=== PATIENT | female | born 1935 | race Caucasian/White ===

== ENCOUNTER 2017-02-16 12:09 | Inpatient (IN) | payer MEDICARE, OTHER ==
--- NOTE | 2017-02-16 12:30 | ED PDOC ---
Arrival/HPI - General Chief Complaint: Weakness/Neurological Deficit Time Seen by Provider: 02/16/17 12:15 Historian: Patient - History of Present Illness Narrative History of Present Illness (Text): 02/16/17 12:15 A 81 year old female, whose past medical history includes hypertension, rheumatoid arthritis, and small bowel obstruction, presents to the emergency department complaining of not being in her usual states of health. Patient reports about an hour prior to arrival she just did not feel like her self. She states she fell in the bathroom and hit the left side of her lead but she did not lose consciousness. Patient notes she feels weaker on the left side and has had some trouble walking. She did noted these symptoms as she tried getting up from the fall but is uncertain why she actually fell. Family also notes that she since the fall she seems confused and is talking less. Patient denies any chest pain, shortness of breath, or other complaints at this time. PMD: Dr. Martin Time/Duration: 1 hour Symptom Onset: Sudden Symptom Course: Unchanged Quality: Other Activities at Onset: Rest Context: Home Past Medical History - Provider Review Nursing Documentation Reviewed: Yes - Cardiac Hx Hypertension: Yes - Pulmonary Hx Respiratory Disorders: No - Neurological HX Cerebrovascular Accident: Yes - HEENT Hx HEENT Disorder: No - Renal Hx Renal Disorder: No - Endocrine/Metabolic Hx Endocrine Disorders: No - Hematological/Oncological Hx Blood Disorders: No - Integumentary Hx Dermatological Disorder: No - Musculoskeletal/Rheumatological Hx Musculoskeletal Disorders: No - Gastrointestinal Hx Gastrointestinal Disorders: No - Genitourinary/Gynecological Hx Genitourinary Disorders: No - Psychiatric Hx Psychophysiologic Disorder: No Hx Substance Use: No - Surgical History Hx Cholecystectomy: Yes Family/Social History - Physician Review Nursing Documentation Reviewed: Yes Family/Social History: Unknown Family HX Smoking Status: Former Smoker Hx Alcohol Use: No Hx Substance Use: No Allergies/Home Meds Allergies/Adverse Reactions: Allergies No Known Allergies Allergy (Verified 02/16/17 12:12) Home Medications: Home Meds Medication Instructions Recorded Confirmed Unobtainable 02/16/17 02/16/17 Review of Systems - Physician Review All systems were reviewed & negative as marked: Yes - Review of Systems Constitutional: Other (hit the left side of her head). absent: Fevers Eyes: absent: Vision Changes ENT: Normal Respiratory: absent: SOB Cardiovascular: absent: Chest Pain, Syncope Gastrointestinal: absent: Abdominal Pain Genitourinary Female: absent: Dysuria Musculoskeletal: absent: Neck Pain Neurological: Focal Weakness (left sided weakness), Gait Changes (trouble walking) Hemo/Lymphatic: Normal Psychiatric: Normal Physical Exam Vital Signs Reviewed: Yes Vital Signs Temp Pulse Resp BP Pulse Ox 02/16/17 13:04 73 147/107 H 02/16/17 12:33 69 17 177/104 H 100 02/16/17 12:22 97.9 F 78 18 179/107 H 100 02/16/17 12:12 98.2 F 79 16 175/106 H 97 Temperature: Afebrile Blood Pressure: Hypertensive Pulse: Regular Respiratory Rate: Normal Appearance: Positive for: Well-Appearing, Non-Toxic, Comfortable Pain Distress: None Mental Status: Positive for: Alert and Oriented X 3 - Systems Exam Head: Present: Atraumatic, Normocephalic Pupils: Present: PERRL Extroacular Muscles: Present: EOMI Conjunctiva: Present: Normal Mouth: Present: Moist Mucous Membranes Pharnyx: Present: Normal. No: ERYTHEMA, EXUDATE Neck: Present: Normal Range of Motion Respiratory/Chest: Present: Clear to Auscultation, Good Air Exchange. No: Respiratory Distress, Accessory Muscle Use Cardiovascular: Present: Regular Rate and Rhythm, Normal S1, S2. No: Murmurs Abdomen: Present: Normal Bowel Sounds. No: Tenderness, Distention, Peritoneal Signs Back: Present: Normal Inspection Upper Extremity: Present: Other (mild pronator drift to the left upper extremity ). No: Cyanosis, Edema Lower Extremity: Present: Other (patient is able to lift the left lower extremity against gravity but falls before 5 seconds). No: Edema Neurological: Present: GCS=15, CN II-XII Intact, Normal Sensory Function. No: Speech Normal (patient is able to answer all question without difficulty but speech is slower but there is no slurring), Motor Func Grossly Intact Skin: Present: Warm, Dry, Normal Color. No: Rashes Psychiatric: Present: Alert, Oriented x 3, Normal Insight, Normal Concentration Medical Decision Making ED Course and Treatment: 02/16/17 12:15 Impression: A 81 year old female with left sided weakness, slow speech and head trauma. Differential Diagnosis include but are not limited to: intracranial hemorrhage vs. ischemic CVA Plan: -- Head CT -- Chest X-ray -- Labs -- Urinalysis -- Reassess and disposition Progress Notes: Code stroke was called by the triage nurse. Case discussed with Dr. Sol June, who recommends to hold on the tPA at this time if CT shows no bleed, given the NIHSS scale is only 4. EKG: Ordered, reviewed, and independently interpreted the EKG. Rate : 78 BPM Rhythm : NSR Interpretation : PACs, right bundle branch block, QRS is 134, normal axis, no ST /T changes 02/16/17 12:[address]: Creator : Alcides Jung MD COMPARISON: None available. FINDINGS: HEMORRHAGE: Areas of acute parenchymal hemorrhage right frontal region with the largest acute hemorrhagic component measures 2 x 4.2 cm. High posterior parietal hemorrhage on the right is also seen measuring 8 mm. BRAIN: No mass effect or edema. No atrophy or chronic microvascular ischemic changes. VENTRICLES: Unremarkable. No hydrocephalus. CALVARIUM: No evidence of calvarial fracture. Extracranial scalp contusion posterior left parietal region. No evidence of extra-axial fluid collection or additional intra-axial hemorrhage. PARANASAL SINUSES: Unremarkable as visualized. No significant inflammatory changes. MASTOID AIR CELLS: Unremarkable as visualized. No inflammatory changes. OTHER FINDINGS: None. IMPRESSION: Two separate intra-axial foci of parenchymal hemorrhage is identified the largest in the right frontal region the 2nd in the high posterior right parietal region. Edema noted with less than 3 mm of midline shift. There is no mass effect upon the adjacent anterior horn of the right lateral ventricle. Contralateral posterior left parietal scalp contusion attests to recent fall and this may represent a Coup contrecoup type brain injury/hemorrhage. There is no evidence of calvarial fracture. 02/16/17 12:52 CT scan showing intracranial hemorrhage as noted. Case discussed with Dr. Barrera, neurosurgery, who said the treatment is non-operative. He recommended keeping the head of the bed elevated, which is being done in the emergency department. Nicardipine drip also started for BP control. Case discussed with Dr. Drake Martin for admission to his service. Case also discussed with Dr. Allen Ramos for admission to the ICU. Informed family of current plan to admit the patient to the ICU for monitoring and frequent neuro checks. Case rediscussed with Dr. Alejandro June who will consult on the patient. 02/16/17 14:37 CXR: nad - Critical Care Critical Care Minutes: 30 minutes - Lab Interpretations Lab Results: 02/16/17 12:54 02/16/17 12:54 Lab Results 02/16/17 12:54: Magnesium 2.4 H, Lactate Dehydrogenase 539, Total Creatine Kinase 110, Troponin I 0.02, Lipase 88 02/16/17 12:54: Sodium 142, Potassium 3.1 L, Chloride 102, Carbon Dioxide 28, Anion Gap 15, BUN 28 H, Creatinine 0.8, Est GFR ( Amer) > 60, Est GFR ( Non-Af Amer) > 60, Random Glucose 88, Calcium 9.6, Total Bilirubin 0.7, AST 41 H , ALT 29, Alkaline Phosphatase 70, Total Protein 8.1, Albumin 4.2, Globulin 3.9 , Albumin/Globulin Ratio 1.1, Triglycerides 160, Cholesterol 247 H, LDL Cholesterol Direct 127, HDL Cholesterol 72 H 02/16/17 12:54: PT 10.4, INR 0.96, APTT 26.8 02/16/17 12:54: WBC 6.4, RBC 4.04, Hgb 12.1, Hct 36.7, MCV 90.8, MCH 30.0, MCHC 33.0, RDW 13.7, Plt Count 254, MPV 9.2, Gran % 67.4, Lymph % (Auto) 23.2, [place] % (Auto) 7.3 H, Eos % (Auto) 1.6, Baso % (Auto) 0.5, Gran # 4.34, Lymph # 1.5, [place] # 0.5, Eos # 0.1, Baso # 0.03 I have reviewed the lab results: Yes - RAD Interpretation Radiology Orders: 02/16/17 12:30 HEAD W/O (CODE STROKE) [CT] Stat 02/16/17 12:33 CHEST ONE VIEW [RAD] Stat - Medication Orders Current Medication Orders: Atorvastatin Calcium (Lipitor) 40 mg PO DIN CHRISTOFER Nicardipine HCl (Cardene Iv Premix) 20 mg in 200 mls @ 50 mls/hr IV .Q4H PRN; Protocol; 5 MG/HR PRN Reason: TITRATE PER MD ORDER Discontinued Medications Nicardipine HCl (Cardene Iv Premix) 20 mg in 200 mls @ 50 mls/hr IV .Q4H PRN; Protocol; 5 MG/HR PRN Reason: TITRATE PER MD ORDER Last Admin: 02/16/17 13:04 Dose: 50 mls/hr Potassium Chloride (Potassium Chloride Oral Soln) 40 meq PO STAT STA Stop: 02/16/17 13:23 NIHSS Scale (Reserve) Time Performed: 12:25 - How Severe is the Stoke Baseline Level of Consciousness: 0=Alert LOC to Questions: 0=Both comments correct LOC to commands: 0=Obeys both correctly Best Gaze: 0=Normal Visual: 0=No visual loss Facial: 0=Normal Motor Arm - Left: 1=Drift noted before 10 sec Motor Arm - Right: 0=No drift Motor Leg - Left: 2=Falls before 5 sec Motor Leg - Right: 0=No drift Limb Ataxia: 0=Absent Sensory: 0=Normal Best Language: 1=Mild to moderate aphasia Dysarthia: 0=Normal articulation Extinction & Inattention (Neglect): 0=Normal, no object Score: 4 Risk Level: Minor Stroke Risk - Scribe Statement The provider has reviewed the documentation as recorded by the Heatheribe Candelario Velez Provider Scribe Attestation: All medical record entries made by the Scribe were at my direction and personally dictated by me. I have reviewed the chart and agree that the record accurately reflects my personal performance of the history, physical exam, medical decision making, and the department course for this patient. I have also personally directed, reviewed, and agree with the discharge instructions and disposition. Disposition/Present on Arrival - Present on Arrival Any Indicators Present on Arrival: No History of DVT/PE: No History of Uncontrolled Diabetes: No Urinary Catheter: No History of Decub. Ulcer: No History Surgical Site Infection Following: None - Disposition Have Diagnosis and Disposition been Completed?: Yes Diagnosis: Intracranial hemorrhage Disposition: HOME/ ROUTINE Disposition Time: 12:55 Patient Plan: Admission, ICU Condition: CRITICAL
[2017-02-16 12:39] VITALS: BMI 18.6
--- NOTE | 2017-02-16 12:53 | CT ---
PROCEDURE: CT HEAD WITHOUT CONTRAST. HISTORY: Recent trauma/fall. COMPARISON: None available. TECHNIQUE: Axial computed tomography images were obtained through the head/brain without intravenous contrast. Radiation dose: Total exam DLP = 774.23 mGy-cm. This CT exam was performed using one or more of the following dose reduction techniques: Automated exposure control, adjustment of the mA and/or kV according to patient size, and/or use of iterative reconstruction technique. FINDINGS: HEMORRHAGE: Areas of acute parenchymal hemorrhage right frontal region with the largest acute hemorrhagic component measures 2 x 4.2 cm. High posterior parietal hemorrhage on the right is also seen measuring 8 mm. BRAIN: No mass effect or edema. No atrophy or chronic microvascular ischemic changes. VENTRICLES: Unremarkable. No hydrocephalus. CALVARIUM: No evidence of calvarial fracture. Extracranial scalp contusion posterior left parietal region. No evidence of extra-axial fluid collection or additional intra-axial hemorrhage. PARANASAL SINUSES: Unremarkable as visualized. No significant inflammatory changes. MASTOID AIR CELLS: Unremarkable as visualized. No inflammatory changes. OTHER FINDINGS: None. IMPRESSION: Two separate intra-axial foci of parenchymal hemorrhage is identified the largest in the right frontal region the 2nd in the high posterior right parietal region. Edema noted with less than 3 mm of midline shift. There is no mass effect upon the adjacent anterior horn of the right lateral ventricle. Contralateral posterior left parietal scalp contusion attests to recent fall and this may represent a Coup contrecoup type brain injury/hemorrhage. . There is no evidence of calvarial fracture. Code stroke protocol: Study completed 12:29 Radiologist notified 12:39 Results conveyed verbally at 12:46 I discussed the findings directly with the attending emergency department physician Antoni Miranda M.D. Interpretation finalized and available for review 12:47 February 16, 2017.
[2017-02-16 12:55] LABS: ADD MANUAL DIFF? NO
[2017-02-16] MEDS ORDERED: Nicardipine 20 MG/200 ML 20 MG/200 ML BAG IV PRN (12:55)
[2017-02-16 13:05] LABS: BASO # 0.03 K/mm3 (0.0-2.0); BASO % 0.5 % (0.0-3.0); EOS # 0.1 (0.0-0.7); EOS % 1.6 % (1.5-5.0); GRAN # 4.34 (1.4-6.5); GRAN % 67.4 % (50.0-68.0); HEMATOCRIT 36.7 % (36.0-48.0); LYMPH # 1.5 (1.2-3.4); LYMPH % 23.2 % (22.0-35.0); MEAN CELL VOLUME 90.8 fL (80.0-105.0); MEAN PLATELET VOLUME 9.2 fl (7.0-11.0); MONO # 0.5 (0.1-0.6); MONO % 7.3 % (1.0-6.0); PLATELET COUNT 254 10^3/uL (120.0-450.0); RED CELL DISTRIBUTION WIDTH 13.7 % (11.5-14.5); WHITE BLOOD COUNT 6.4 10^3/ul (4.5-11.0)
[2017-02-16 13:11] LABS: INR 0.96 (0.93-1.08); PARTIAL THROMBOPLASTIN TIME 26.8 Seconds (23.7-30.8)
[2017-02-16 13:12] LABS: ALB/GLOB RATIO 1.1 (1.1-1.8); ALKALINE PHOSPHATASE 70 U/L (38-133); ALT/SGPT 29 U/L (7-56); AST/SGOT 41 U/L (15-39); BILIRUBIN,TOTAL 0.7 mg/dL (0.2-1.3); BLOOD UREA NITROGEN 28 mg/dL (7-21); CALCIUM 9.6 mg/dL (8.4-10.5); CARBON DIOXIDE 28 mmol/L (21-33); CHLORIDE 102 mmol/L (98-107); CHOLESTEROL 247 mg/dL (130-200); GFR AFRICAN-AMERICAN > 60; GLUCOSE,RANDOM 88 mg/dL (70-110); POTASSIUM 3.1 mmol/L (3.6-5.0); SODIUM 142 mmol/L (132-148); TOTAL PROTEIN 8.1 g/dL (5.8-8.3)
[2017-02-16] MEDS ORDERED: Potassium Chloride 40 mEq/30 ml LIQ UD PO STA (13:22)
[2017-02-16 13:40] LABS: MAGNESIUM 2.4 mg/dL (1.7-2.2)
[2017-02-16 13:52] LABS: TROPONIN I 0.02 ng/mL
--- NOTE | 2017-02-16 15:11 | RAD ---
PROCEDURE: CHEST RADIOGRAPH, 1 VIEW HISTORY: stroke COMPARISON: 10/21/2016. FINDINGS: LUNGS: Clear. PLEURA: No pneumothorax or pleural fluid seen. CARDIOVASCULAR: No radiographic findings to suggest acute or significant cardiovascular disease. OSSEOUS STRUCTURES: No significant abnormalities. VISUALIZED UPPER ABDOMEN: Normal. OTHER FINDINGS: None. IMPRESSION: No active disease. No acute/significant interval changes.
--- NOTE | 2017-02-16 15:58 | US ---
HISTORY: Leg pain and swelling. Evaluate for DVT PHYSICIAN(S): Eladio Mcguire MD. TECHNIQUE: Duplex sonography and color-flow Doppler with graded compression were used to evaluate the deep venous systems of both lower extremities. FINDINGS: The visualized deep venous systems of both lower extremities are sonographically normal and compressible. Normal wave forms and augmentation are seen. There is no sonographic evidence for deep venous thrombosis in the visualized segments of both lower extremities. IMPRESSION: No sonographic evidence for deep venous thrombosis in the visualized segments of both lower extremities.
[2017-02-16] MEDS: Nicardipine 20 MG/200 ML 20 MG/200 ML BAG IV PRN ×2 (16:53→20:17)
[2017-02-16] MEDS: Sodium Chloride 0.45% 1,000 ML IV SCH (16:59)
--- NOTE | 2017-02-16 17:40 | CT ---
PROCEDURE: CT HEAD WITHOUT CONTRAST. HISTORY: ams COMPARISON: February 16, 2017. Prior study completed 12:29. TECHNIQUE: Axial computed tomography images were obtained through the head/brain without intravenous contrast. Radiation dose: Total exam DLP = mGy-cm. This CT exam was performed using one or more of the following dose reduction techniques: Automated exposure control, adjustment of the mA and/or kV according to patient size, and/or use of iterative reconstruction technique. FINDINGS: HEMORRHAGE: Stable foci of intracranial hemorrhage the largest in the right frontal lobe. Small or acute parenchymal hemorrhage in the high right parietal region. BRAIN: Stable old degree of midline shift. Stable underlying cortical and cerebellar atrophy. VENTRICLES: Unremarkable. No hydrocephalus. CALVARIUM: Unremarkable. PARANASAL SINUSES: Unremarkable as visualized. No significant inflammatory changes. MASTOID AIR CELLS: Unremarkable as visualized. No inflammatory changes. OTHER FINDINGS: None. IMPRESSION: No significant interval change compared to the prior examination(s). Stable parenchymal hemorrhage right hemisphere.
--- NOTE | 2017-02-16 19:19 | CON ---
DATE: 02/16/2017 REQUESTING PHYSICIAN: Dr. Martin. CHIEF COMPLAINT: The patient presented with left-sided weakness and having a fall at home, noted to have an intercerebral hemorrhage on CT scan. HISTORY OF PRESENT ILLNESS: The patient is an 81-year-old female with a past medical history of hype rtension, rheumatoid arthritis and a CVA in the past. As per the patient and family, she felt weak t his morning and had a fall in the bathroom, hitting her head and after that developed left-sided weak ness and came to the Emergency Room. CT scan showed that she had intracerebral hemorrhage. At this time, the patient is awake, answers appropriately and has had some episodes of mental status changes here in the ICU, so we are repeating the CT scan of the head and the patient has been placed on a Car dene drip and neuro has recommended tight blood pressure control with systolic between 120 and 130. At this time, no complaints of pain. No nausea, vomiting, no abdominal pain, no diarrhea. No fever, chills or shortness of breath. PAST MEDICAL HISTORY: Is significant for history of CVA many years ago as well as the above noted. MEDICATIONS: Can be evaluated as per the nurses' intake form. SOCIAL HISTORY: The patient is a former smoker. No ETOH abuse. No drug abuse. REVIEW OF SYSTEMS: CONSTITUTIONAL: The patient hit the left side of her head. There is a hematoma. No fever or chills . HEENT: All negative. RESPIRATORY: All negative. CARDIOVASCULAR: All negative. GASTROINTESTINAL: All negative. GENITOURINARY: All negative. MUSCULOSKELETAL: All negative. NEUROPSYCHIATRIC: There was some focal weakness. HEMATOLOGIC: All negative. IMMUNOLOGIC: All negative. ENDOCRINE: All negative. INTEGRITY: All negative. PHYSICAL EXAMINATION: VITAL SIGNS: Note that her temperature is 98.2, her pulse is 80, respirations are 16, and BP is 135/ 75. HEAD: Note that she does have a hematoma on the back of her head. EARS, NOSE AND THROAT: Within normal limits. NECK: Supple, no JVD, no thyroid enlargement, no lymph nodes. HEART: Has a regular rate and rhythm. Normal S1, S2. LUNGS: Reveal good breath sounds bilaterally. ABDOMEN: Soft and nontender. Normal bowel sounds. GENITALIA AND RECTAL: Deferred. MUSCULOSKELETAL: No joint deformities. EXTREMITIES: Reveal no significant edema. NEUROLOGIC: She has weakness on the left side, upper and lower extremity, and she also is slow to re spond to the spoken word but answers appropriately when she does respond. LABORATORY DATA: As far as her laboratories are concerned, white count is 6.4, hemoglobin is 12.1, h ematocrit 36.7 with platelets of 254,000. Her sodium is 142, potassium 3.1, chloride 102, CO2 of 28 with a BUN of 28, creatinine of 0.8 and a glucose of 88. Her CT of her head reveals 2 separate intra axial foci of parenchymal hemorrhage, largest in the right frontal region and the second is in the hi gh posterior right parietal region. Edema noted with less than 3 mm of midline shift. No mass effec t upon the adjacent anterior horn of the right lateral ventricle. Contralateral posterior left parie shanice scalp contusion. Chest x-ray reveals no active disease. IMPRESSION: This patient has intercerebral hemorrhage with left-sided weakness secondary to a fall. She has a scalp contusion and a history of hypertension as well as rheumatoid arthritis and old CVA in the past. It is noted that she has hypokalemia as well. PLAN: We will correct the hypokalemia. The patient is on Cardene drip and as per neuro, we will eliel ntain the systolic blood pressure between 120 and 130. The patient is scheduled for a repeat CT scan of her head and we will put her on neuro checks q.1 hour. The patient will continue her Lipitor and will be put on IV fluids as maintenance. Neurosurgery consult has been called and consulted. We wi ll continue to treat aggressively along with the other consultants and the primary care doctor. Allen Ramos MD cc: [id number] TT: 02/16/2017 19:18:49 Confirmation # [id number] Dictation # [id number]
[2017-02-16] MEDS: levETIRAcetam 500mg IVPB 500 MG/100 ML BAG IV SCH (21:54)
[2017-02-16] MEDS ORDERED: Metoprolol 1 mg/ml Inj IVP ONE (22:16)
--- NOTE | 2017-02-17 02:15 | CON ---
DATE: 02/16/2017 HISTORY OF PRESENT ILLNESS: This is an 81-year-old female with past medical history of hypertension, rheumatoid arthritis, small-bowel obstruction. Came to the hospital complaining of not being in [facility] state of health, developed weakness on the left arm and leg and CAT scan of the head was done, [facility] shows right parietal and frontal bleed and possibly . Family at bedside. Feels weaker on th e left side. Otherwise, is more awake and follows commands. PAST MEDICAL HISTORY: Hypertension, rheumatoid arthritis. REVIEW OF SYSTEMS: A 10-point review of system was negative except left-sided weakness. ALLERGIES: No known drug allergies. HOME MEDICATIONS: Not available. PHYSICAL EXAMINATION: VITAL SIGNS: Blood pressure 175/106. HEENT: Normocephalic, atraumatic. NECK: Supple. NEUROLOGIC: Awake, alert, oriented to self and place. No aphasia. Cranial nerves II through XII ar e tested. Pupils reactive. No facial asymmetry. Left side weakness 2/5 in the left upper and 2/5 i n the left lower extremity and left plantar is upgoing. Right side normal, 5/5 strength in both uppe r and lower extremities. Deep tendon reflexes 1+. Left plantar is upgoing. Sensory appears intact. Cerebellar gait deferred. IMPRESSION AND PLAN: Right hemispheric frontal and parietal hemorrhage and weakness secondary to the left side. Blood pressure is under control. I ordered Keppra to make sure no seizure. Continue pr esent management. Will follow up. Alejandro June MD cc: [id number] TT: 02/17/2017 02:14:35 Confirmation # [id number] Dictation # [id number]
[2017-02-17] MEDS: Nicardipine 20 MG/200 ML 20 MG/200 ML BAG IV PRN (06:08)
[2017-02-17 06:40] LABS: ADD MANUAL DIFF? NO
[2017-02-17 07:01] LABS: BASO # 0.04 K/mm3 (0.0-2.0); BASO % 0.5 % (0.0-3.0); EOS # 0.1 (0.0-0.7); EOS % 0.9 % (1.5-5.0); GRAN # 6.61 (1.4-6.5); GRAN % 76.9 % (50.0-68.0); HEMATOCRIT 36.1 % (36.0-48.0); LYMPH # 1.3 (1.2-3.4); LYMPH % 15.3 % (22.0-35.0); MEAN CELL VOLUME 89.4 fL (80.0-105.0); MEAN CORPUSCULAR HGB CONC 33.5 g/dl (31.0-37.0); MEAN PLATELET VOLUME 9.1 fl (7.0-11.0); MONO # 0.6 (0.1-0.6); MONO % 6.4 % (1.0-6.0); PLATELET COUNT 268 10^3/uL (120.0-450.0); RED CELL DISTRIBUTION WIDTH 13.6 % (11.5-14.5); WHITE BLOOD COUNT 8.6 10^3/ul (4.5-11.0)
[2017-02-17 07:16] LABS: ALB/GLOB RATIO 1.1 (1.1-1.8); ALKALINE PHOSPHATASE 69 U/L (38-133); ALT/SGPT 24 U/L (7-56); AST/SGOT 41 U/L (15-39); BILIRUBIN,TOTAL 0.8 mg/dL (0.2-1.3); BLOOD UREA NITROGEN 15 mg/dL (7-21); CARBON DIOXIDE 24 mmol/L (21-33); CHLORIDE 103 mmol/L (98-107); GFR AFRICAN-AMERICAN > 60; GLUCOSE,RANDOM 96 mg/dL (70-110); POTASSIUM 3.2 mmol/L (3.6-5.0); SODIUM 138 mmol/L (132-148); TOTAL PROTEIN 8.2 g/dL (5.8-8.3)
[2017-02-17 07:34] LABS: MAGNESIUM 2.3 mg/dL (1.7-2.2)
--- NOTE | 2017-02-17 09:11 | CP.PCM.PN ---
<Natalya Martel - Last Filed: 02/17/17 12:15> Subjective - Date & Time of Evaluation Date of Evaluation: 02/17/17 Time of Evaluation: 09:08 - Subjective Subjective: ICU Progress Note This is a 81Y F with PMH HTN, SBO and RA here for intracerebral hemorrhage s/p fall. Patient was seen and examined at beside. There were no acute overnight events. This am patient was more confused and not moving L side. Yesterday, patient was A&O x 3 with weakness, but some functioning of L upper and lower extremities. This am she is A&O x 1 and has decreased function of L side. She denies having any pain, CP, SOB, n/v/d. Objective - Vital Signs/Intake and Output Vital Signs (last 24 hours): Temp Pulse Resp BP Pulse Ox 99 F 72 20 129/67 97 02/17/17 04:00 02/17/17 06:00 02/17/17 04:00 02/17/17 03:58 02/17/17 04:00 Intake and Output: 02/17/17 02/17/17 06:59 18:59 Intake Total 1560 50 Output Total 1500 Balance 60 50 - Medications Medications: Current Medications Atorvastatin Calcium (Lipitor) 40 mg PO DIN [facility] Last Admin: 02/16/17 16:55 Dose: Not Given Nicardipine HCl (Cardene Iv Premix) 20 mg in 200 mls @ 50 mls/hr IV .Q4H PRN; Protocol; 5 MG/HR PRN Reason: TITRATE PER MD ORDER Last Titration: 02/17/17 07:00 Dose: 2 mg/hr, 20 mls/hr Sodium Chloride (Sodium Chloride 0.45%) 1,000 mls @ 60 mls/hr IV .[id number] [facility] Last Admin: 02/16/17 16:59 Dose: 60 mls/hr Levetiracetam (Keppra 500mg Ivpb) 500 mg in 100 mls @ 400 mls/hr IV Q12 [facility] Last Admin: 02/16/17 21:54 Dose: 400 mls/hr Potassium Chloride (Potassium Chloride 20 Meq/100 Ml) 20 meq in 100 mls @ 50 mls/hr IVPB ONCE ONE Stop: 02/17/17 09:51 - Labs Labs: 02/17/17 06:10 06/12/17 06:10 PT 10.4 Seconds (9.9-11.8) 02/16/17 12:54 INR 0.96 (0.93-1.08) 02/16/17 12:54 APTT 26.8 Seconds (23.7-30.8) 02/16/17 12:54 - Constitutional Appears: No Acute Distress - Head Exam Head Exam: ATRAUMATIC, NORMAL INSPECTION, NORMOCEPHALIC - Eye Exam Eye Exam: Normal appearance, PERRL Pupil Exam: NORMAL ACCOMODATION, PERRL - ENT Exam ENT Exam: Mucous Membranes Moist - Neck Exam Neck Exam: Full ROM - Respiratory Exam Respiratory Exam: Clear to Ausculation Bilateral, NORMAL BREATHING PATTERN. absent: Rales, Rhonchi, Wheezes - Cardiovascular Exam Cardiovascular Exam: REGULAR RHYTHM, +S1, +S2. absent: Gallop, Rubs, Murmur - GI/Abdominal Exam GI & Abdominal Exam: Soft, Normal Bowel Sounds. absent: Rigid, Tenderness, Mass , Rebound - Extremities Exam Extremities Exam: Pedal Edema - Neurological Exam Neurological Exam: Alert, CN II-XII Intact. absent: Oriented x3 (Oriented to person only ) Neuro motor strength exam: Left Upper Extremity: 0, Right Upper Extremity: 4, Left Lower Extremity: 0, Right Lower Extremity: 4 - Psychiatric Exam Psychiatric exam: Normal Affect, Normal Mood - Skin Skin Exam: Dry, Intact, Normal Color, Warm Assessment and Plan - Assessment and Plan (Free Text) Assessment: This is a 81Y F with PMH HTN, SBO and RA here for intracerebral hemorrhage in R frontal and parietal region with coupe contre coupe findings s/p fall. Plan: Neuro: Neurocheck q1h Repeat CT head- stable with no interval changes Neurosurgery consulted- spoke with Dr. Barrera this am who did not see a change in the head CT Neuro consulted- started Keppra for seizure prophylaxis Passed speech and swallow eval CV: off of Cardene drip Clonidine 0.1mg TID prn Maintain SBP <140 Lipitor Resp: Patient comfortable on room air Maintain spO2>90% Aspiration precaution HOB elevated GI: Dysphagia diet NS@60ml/hr /Nephro: Continue to monitor renal function Will monitor electrolytes and replace as needed Heme: Hgb stable Continue to monitor Ext U/S noted to be negative for DVT ID: Afebrile, no leukocytosis Maintain normothermia U/A pending Endo: BGM ACHS Maintain euglycemia between 100-140 GI ppx: Pepcid DVT ppx: SCDs Dispo: Prognosis is guarded. Spoke with Dr. June, who reports patient will be able to be transferred to telemetry for further monitoring. Case seen, discussed and reviewed with attending David Martel PGY1 <Alvin Villareal - Last Filed: 02/17/17 17:22> Objective - Vital Signs/Intake and Output Vital Signs (last 24 hours): Temp Pulse Resp BP Pulse Ox 98.2 F 65 16 147/67 97 02/17/17 12:07 02/17/17 14:36 02/17/17 12:07 02/17/17 14:36 02/17/17 04:00 Intake and Output: 02/17/17 02/17/17 06:59 18:59 Intake Total 1560 50 Output Total 1500 Balance 60 50 - Medications Medications: Current Medications Atorvastatin Calcium (Lipitor) 40 mg PO DIN [facility] Last Admin: 02/16/17 16:55 Dose: Not Given Clonidine HCl (Catapres) 0.1 mg PO TID PRN PRN Reason: Systolic Blood Pressure Last Admin: 02/17/17 14:36 Dose: 0.1 mg Famotidine (Pepcid) 20 mg IVP DAILY [facility] Last Admin: 02/17/17 09:55 Dose: 20 mg Sodium Chloride (Sodium Chloride 0.45%) 1,000 mls @ 60 mls/hr IV .[id number] [facility] Last Admin: 02/17/17 10:04 Dose: 60 mls/hr Levetiracetam (Keppra 500mg Ivpb) 500 mg in 100 mls @ 400 mls/hr IV Q12 [facility] Last Admin: 02/17/17 09:54 Dose: 400 mls/hr - Labs Labs: 02/17/17 06:10 02/17/17 06:10 PT 10.4 Seconds (9.9-11.8) 02/16/17 12:54 INR 0.96 (0.93-1.08) 02/16/17 12:54 APTT 26.8 Seconds (23.7-30.8) 02/16/17 12:54 Addendum Addendum: 02/17/17 17:19 patient was seen, examined and discussed with Dr. Martel at bedside. her note reflects my exam, assessment and plna, except as below. Meds/Labs/ONE reviewed. 81 yo female with ICH, no expansion overnight. Nsx-no Nsx intervention. BP control 140-160. No AC and no AP. Mechanical DVT prophylaxis, PT/OT, echo, carotid doppler, early mobilization. Patient passed swallow eval and oral nutrition is in order. Ok to downgrade to stroke floor ccm time 40 min
--- NOTE | 2017-02-17 09:20 | CARD ---
APPROVED REPORT EKG Measurement Heart [id number] <Conclusion> Sinus rhythm with premature atrial complexes Right bundle branch block NSSTW changes
--- NOTE | 2017-02-17 09:41 | CT ---
PROCEDURE: CT HEAD WITHOUT CONTRAST. HISTORY: ams COMPARISON: 02/16/2017 TECHNIQUE: Axial computed tomography images were obtained through the head/brain without intravenous contrast. Radiation dose: Total exam DLP = 722 mGy-cm. This CT exam was performed using one or more of the following dose reduction techniques: Automated exposure control, adjustment of the mA and/or kV according to patient size, and/or use of iterative reconstruction technique. FINDINGS: HEMORRHAGE: Stable foci of intracranial hemorrhage the largest in the right frontal lobe. Small or acute parenchymal hemorrhage in the high right parietal region. BRAIN: No significant change in mass effect with minimal midline shift. No atrophy or chronic microvascular ischemic changes. VENTRICLES: Unremarkable. No hydrocephalus. CALVARIUM: Unremarkable. PARANASAL SINUSES: Unremarkable as visualized. No significant inflammatory changes. MASTOID AIR CELLS: Unremarkable as visualized. No inflammatory changes. OTHER FINDINGS: None. IMPRESSION: No interval change.
[2017-02-17] MEDS: levETIRAcetam 500mg IVPB 500 MG/100 ML BAG IV SCH ×2 (09:54→21:40)
[2017-02-17] MEDS: Sodium Chloride 0.45% 1,000 ML IV SCH (10:04)
--- NOTE | 2017-02-17 12:44 | CON ---
DATE: 02/16/2017 This is an 81-year-old lady that was admitted with new onset of left-sided weakness. She fell, she s truck her head, and was seen in the [facility], was found to have the above findings. Le john of consciousness was okay. CT of the brain documented a moderate size intraparenchymal hematoma in the anterior right frontal re gion. There was very minimal mass effect. There was no midline shift. It certainly does not seem t o involve the motor area. IMPRESSION AND PLAN: There is certainly no need for any neurosurgical intervention. I also question ed the relationship of this hematoma to any left-sided problems. This is fairly anterior and not karen lly near the internal capsule. I question whether she in fact had a thromboembolic event which cause d her to fall. In any case, my recommendation would be admission to the ICU, neuro-checks, head of bed elevation, mi ld ____, and followup CT in the morning. Baudilio Barrera MD cc: [id number] TT: 02/17/2017 12:19:20 Confirmation # [id number] Dictation # [id number]
--- NOTE | 2017-02-17 14:03 | CP.PCM.PN ---
Subjective - Date & Time of Evaluation Date of Evaluation: 02/17/17 Time of Evaluation: 14:00 - Subjective Subjective: pt remains awake alert talking appropriatly short responses to verbal readily following commands with right able to move l leg minimally left arm flaccid Does not open eyes Reviewed CT from this morning no interval change minimal mass effect Hematoma not in location to cause l hemiplegia of this nature possible bland infarct present but not seen on CT There is no indication for evacuation. removal will not help mitigate the weakness Unless there is further change further tx as per med and neurology Objective - Vital Signs/Intake and Output Vital Signs (last 24 hours): Temp Pulse Resp BP Pulse Ox 98.2 F 73 16 134/67 97 02/17/17 12:07 02/17/17 12:07 02/17/17 12:07 02/17/17 12:07 02/17/17 04:00 Intake and Output: 02/17/17 02/17/17 06:59 18:59 Intake Total 1560 50 Output Total 1500 Balance 60 50 - Medications Medications: Current Medications Atorvastatin Calcium (Lipitor) 40 mg PO DIN [facility] Last Admin: 02/16/17 16:55 Dose: Not Given Clonidine HCl (Catapres) 0.1 mg PO TID PRN PRN Reason: Systolic Blood Pressure Famotidine (Pepcid) 20 mg IVP DAILY [facility] Last Admin: 02/17/17 09:55 Dose: 20 mg Sodium Chloride (Sodium Chloride 0.45%) 1,000 mls @ 60 mls/hr IV .[id number] [facility] Last Admin: 02/17/17 10:04 Dose: 60 mls/hr Levetiracetam (Keppra 500mg Ivpb) 500 mg in 100 mls @ 400 mls/hr IV Q12 [facility] Last Admin: 02/17/17 09:54 Dose: 400 mls/hr - Labs Labs: 02/17/17 06:10 02/17/17 06:10 PT 10.4 Seconds (9.9-11.8) 02/16/17 12:54 INR 0.96 (0.93-1.08) 02/16/17 12:54 APTT 26.8 Seconds (23.7-30.8) 02/16/17 12:54
--- NOTE | 2017-02-17 17:42 | HP ---
HISTORY OF PRESENT ILLNESS: The patient is an 81-year-old female with a history of hypertension, who was seen in the Emergency Department after falling at home. She was found to have left-sided weakne ss. CT of the head showed an intracranial hemorrhage involving the right frontal and parietal lobes. The patient is admitted to the intensive care unit for further evaluation and management. She has been seen in consultation by neurology, Dr. June, and by neurosurgery, Dr. Barrera. She is on IV n icardipine as well as Keppra 500 IV q. 12 hours for seizure prophylaxis. PAST MEDICAL HISTORY: Includes hypertension, hypercholesterolemia. The patient recently had mild az otemia. She has degenerative joint disease. PAST SURGICAL HISTORY: Includes cholecystectomy. CURRENT MEDICATIONS: Include clonidine 0.1 mg t.i.d. p.r.n., Keppra 500 mg IV q. 12 hours Lipi tor 40 mg daily, Pepcid 20 mg IV daily. ALLERGIES: The patient has no known drug allergies. SOCIAL HISTORY: There is no history of tobacco or alcohol use. She was previously independent with ADLs and IADLs. FAMILY HISTORY: Noncontributory. REVIEW OF SYSTEMS: Essentially unobtainable. PHYSICAL EXAMINATION: GENERAL: The patient is a well-developed, slightly cachectic female in no acute distress. VITAL SIGNS: Blood pressure 134/67, pulse 73, temperature 98.2, respiratory rate 16. HEENT: Head is normocephalic, atraumatic. Pupils poorly reactive. Extraocular movements: Unable to assess. NECK: Supple with no carotid bruit, no adenopathy, no thyromegaly. LUNGS: Clear. HEART: Regular rate and rhythm. ABDOMEN: Soft, nontender. Bowel sounds are normoactive. EXTREMITIES: Without cyanosis, clubbing or edema. NEUROLOGIC: The patient is slightly lethargic but arousable. She is responsive to verbal commands. She has left-sided weakness, approximately 3+/5 motor strength of the left upper extremity with flex ion and extension, 3+/5 motor strength of the left lower extremity in flexion and extension, and ____ _ extremity is 4+ to 5/5 in the upper and lower extremities on the right side. SKIN: Warm and dry. LABORATORY DATA: WBCs 8.6, hemoglobin 12.1, hematocrit 36.1. Sodium 138, potassium 3.2, chloride 10 3, CO2 24, BUN 15, creatinine 0.7, glucose 96. Chest x-ray shows no active disease. IMPRESSION: 1. 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 2. Hypertension. 3. Hypercholesterolemia. 4. Degenerative joint disease. 5. Azotemia, possible chronic kidney disease. PLAN: The patient is admitted to the intensive care unit. Continue neurology followup with Dr. Alonzo or, neurosurgical followup with Dr. Barrera. We will review the patient's advanced directive and det erminate DNR status and whether patient desires aggressive management including placement of a nasoga stric tube, IV fluids, etc. Discussed with family at bedside. Prognosis is guarded. Drake Martin JD, MD cc: [phone] TT: 02/17/2017 17:41:35 ln
[2017-02-18] MEDS: Sodium Chloride 0.45% 1,000 ML IV SCH (04:56)
[2017-02-18 06:53] LABS: ADD MANUAL DIFF? NO
[2017-02-18 07:04] LABS: BASO # 0.05 K/mm3 (0.0-2.0); BASO % 0.6 % (0.0-3.0); EOS # 0.2 (0.0-0.7); EOS % 1.8 % (1.5-5.0); GRAN # 4.96 (1.4-6.5); GRAN % 60.9 % (50.0-68.0); HEMATOCRIT 34.7 % (36.0-48.0); LYMPH # 2.2 (1.2-3.4); MEAN CORPUSCULAR HEMOGLOBIN 29.7 pg (25.0-35.0); MEAN CORPUSCULAR HGB CONC 33.4 g/dl (31.0-37.0); MEAN PLATELET VOLUME 9.2 fl (7.0-11.0); MONO # 0.8 (0.1-0.6); MONO % 9.7 % (1.0-6.0); PLATELET COUNT 248 10^3/uL (120.0-450.0); RED CELL DISTRIBUTION WIDTH 13.7 % (11.5-14.5); WHITE BLOOD COUNT 8.2 10^3/ul (4.5-11.0)
[2017-02-18 07:12] LABS: INR 0.97 (0.93-1.08); PARTIAL THROMBOPLASTIN TIME 30.3 Seconds (23.7-30.8)
[2017-02-18 07:24] LABS: ALKALINE PHOSPHATASE 64 U/L (38-133); ALT/SGPT 27 U/L (7-56); AST/SGOT 46 U/L (15-39); BILIRUBIN,TOTAL 1.3 mg/dL (0.2-1.3); BLOOD UREA NITROGEN 14 mg/dL (7-21); CALCIUM 8.9 mg/dL (8.4-10.5); CARBON DIOXIDE 22 mmol/L (21-33); CHLORIDE 105 mmol/L (98-107); GFR AFRICAN-AMERICAN > 60; GLUCOSE,RANDOM 79 mg/dL (70-110); SODIUM 136 mmol/L (132-148); TOTAL PROTEIN 7.8 g/dL (5.8-8.3)
[2017-02-18] MEDS: levETIRAcetam 500mg IVPB 500 MG/100 ML BAG IV SCH ×2 (09:29→22:40)
[2017-02-18] MEDS: Potassium Chloride 20 mEq/15 ml LIQ UD PO SCH ×2 (10:15→17:33)
[2017-02-18 12:07] VITALS: O2SAT 99
--- NOTE | 2017-02-18 12:56 | PN ---
DATE: 02/18/2017 An 81-year-old female with past medical history of hypertension, rheumatoid arthritis came to [facility], developed weakness of the left arm and left leg. CAT scan of the head showed right parietal and f rontal bleed. Neurosurgery on the case. Family at bedside. PHYSICAL EXAMINATION: NEUROLOGIC: The patient is more drowsy and still follows simple commands. Showed 2 fingers in respo nse to verbal commands and weakness on the left side and spontaneous movement of the right upper and lower extremities noted. Sensory intact. Cerebellar, gait deferred. IMPRESSION: Right hemispheric frontal and parietal hemorrhage and with secondary left side weakness. PLAN: Continue present management. We will follow up. Alejandro June MD cc: [id number] TT: 02/18/2017 12:55:39 Confirmation # [id number] Dictation # [id number] mikki
--- NOTE | 2017-02-18 13:41 | CP.PCM.PN ---
Subjective - Date & Time of Evaluation Date of Evaluation: 02/18/17 Time of Evaluation: 13:40 - Subjective Subjective: pt seems more awake and alert, still wont open eyes remains with hemiparesis STill no surgical intervention indicated Objective - Vital Signs/Intake and Output Vital Signs (last 24 hours): Temp Pulse Resp BP Pulse Ox 97.6 F 59 L 14 116/69 99 02/18/17 04:00 02/18/17 12:00 02/18/17 12:00 02/18/17 11:32 02/18/17 12:00 Intake and Output: 02/18/17 02/18/17 06:59 18:59 Intake Total 2220 Output Total 1600 Balance 620 - Medications Medications: Current Medications Atorvastatin Calcium (Lipitor) 40 mg PO DIN [facility] Last Admin: 02/17/17 17:49 Dose: 40 mg Clonidine HCl (Catapres) 0.1 mg PO TID PRN PRN Reason: Systolic Blood Pressure Last Admin: 02/18/17 09:38 Dose: 0.1 mg Famotidine (Pepcid) 20 mg IVP DAILY [facility] Last Admin: 02/18/17 09:29 Dose: 20 mg Sodium Chloride (Sodium Chloride 0.45%) 1,000 mls @ 60 mls/hr IV .[id number] [facility] Last Admin: 02/18/17 04:56 Dose: 60 mls/hr Levetiracetam (Keppra 500mg Ivpb) 500 mg in 100 mls @ 400 mls/hr IV Q12 [facility] Last Admin: 02/18/17 09:29 Dose: 400 mls/hr Potassium Chloride (Potassium Chloride Oral Soln) 20 meq PO BID [facility] Last Admin: 02/18/17 10:15 Dose: 20 meq - Labs Labs: 02/18/17 06:00 02/18/17 06:00 PT 10.5 Seconds (9.9-11.8) 02/18/17 06:00 INR 0.97 (0.93-1.08) 02/18/17 06:00 APTT 30.3 Seconds (23.7-30.8) 02/18/17 06:00
--- NOTE | 2017-02-18 14:44 | PN ---
DATE: 02/18/2017 SUBJECTIVE: The patient is lying in bed in no acute distress. She is more awake and responsive than previous and has been taking orally. OBJECTIVE: VITAL SIGNS: Blood pressure 116/69, pulse 54, respiratory rate 17, temperature 97.6 axillary. LUNGS: Clear. HEART: Regular rate and rhythm. ABDOMEN: Soft, nontender, bowel sounds are normoactive. EXTREMITIES: Without cyanosis, clubbing, or edema. NEUROLOGIC: The patient remains slightly lethargic, but arousable and responsive to verbal commands. The focal left-sided weakness is without change from previous. SKIN: Warm and dry. LABORATORY DATA: WBC is 8.2, hemoglobin 11.6, hematocrit 34.7, sodium 136, potassium 3.0, chloride 1 05, CO2 of 22, BUN 14, creatinine 0.7, glucose 79. IMPRESSION: 1. 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 2. Hypertension. 3. Hypercholesterolemia. 4. Degenerative joint disease. 5. Azotemia improved. PLAN: The patient will be upgraded to the telemetry unit. Continue neurology followup with Dr. Alonzo or, neurosurgical followup with Dr. Barrera. Continue rehab with possible transfer to subacute [facility]. Prognosis remains guarded. Drake Martin JD, MD cc: [id number] TT: 02/18/2017 14:43:17 Confirmation # [id number] Dictation # [id number] shawn
--- NOTE | 2017-02-18 20:24 | US ---
EXAM: US Retroperitoneal Limited, Renal CLINICAL HISTORY: 81 years old, female; Pain; Abdominal pain; Additional info: Azotemia TECHNIQUE: Real-time ultrasound of the retroperitoneum (limited) with image documentation. EXAM DATE/TIME: 02/18/2017 2:17 PM COMPARISON: There are no prior studies for comparison. FINDINGS: Right kidney: Right kidney measures approximately 9.5 x 3.5 x 4.9 cm. Cortical medullary differentiation is poorly visualized. There is no pelvocaliectasis. There is renal perfusion on color Doppler imaging Left kidney: Left kidney measures approximately 8.5 x 3.5 x 4.1 cm. Corticomedullary differentiation is not visualized. There is no pelvocaliectasis. There is renal perfusion on color imaging. IMPRESSION: No hydronephrosis
[2017-02-19 05:57] VITALS: RESP 18
[2017-02-19 06:52] LABS: ADD MANUAL DIFF? NO
[2017-02-19 07:05] LABS: BASO # 0.02 K/mm3 (0.0-2.0); BASO % 0.3 % (0.0-3.0); EOS # 0.2 (0.0-0.7); EOS % 2.6 % (1.5-5.0); GRAN # 4.13 (1.4-6.5); GRAN % 62.6 % (50.0-68.0); HEMATOCRIT 32.2 % (36.0-48.0); LYMPH # 1.6 (1.2-3.4); LYMPH % 23.7 % (22.0-35.0); MEAN CELL VOLUME 88.5 fL (80.0-105.0); MEAN CORPUSCULAR HEMOGLOBIN 30.2 pg (25.0-35.0); MEAN CORPUSCULAR HGB CONC 34.2 g/dl (31.0-37.0); MEAN PLATELET VOLUME 9.3 fl (7.0-11.0); MONO # 0.7 (0.1-0.6); MONO % 10.8 % (1.0-6.0); PLATELET COUNT 208 10^3/uL (120.0-450.0); RED CELL DISTRIBUTION WIDTH 13.4 % (11.5-14.5); WHITE BLOOD COUNT 6.6 10^3/ul (4.5-11.0)
[2017-02-19 07:08] LABS: ALKALINE PHOSPHATASE 52 U/L (38-133); ALT/SGPT 27 U/L (7-56); AST/SGOT 36 U/L (15-39); BILIRUBIN,TOTAL 0.8 mg/dL (0.2-1.3); BLOOD UREA NITROGEN 18 mg/dL (7-21); CALCIUM 8.8 mg/dL (8.4-10.5); CARBON DIOXIDE 23 mmol/L (21-33); CHLORIDE 106 mmol/L (98-107); GFR AFRICAN-AMERICAN > 60; GLUCOSE,RANDOM 92 mg/dL (70-110); POTASSIUM 3.5 mmol/L (3.6-5.0); SODIUM 136 mmol/L (132-148); TOTAL PROTEIN 6.9 g/dL (5.8-8.3)
[2017-02-19 07:25] LABS: INR 0.97 (0.93-1.08); PARTIAL THROMBOPLASTIN TIME 29.2 Seconds (23.7-30.8)
[2017-02-19] MEDS: Potassium Chloride 20 mEq/15 ml LIQ UD PO SCH (10:29)
[2017-02-19] MEDS: levETIRAcetam 500mg IVPB 500 MG/100 ML BAG IV SCH (10:30)
--- NOTE | 2017-02-19 11:12 | PN ---
DATE: 02/19/2017 SUBJECTIVE: The patient is lying in bed in no acute distress. She is awake and responsive to verbal commands. OBJECTIVE: VITAL SIGNS: Blood pressure 150/73, temperature 97, pulse 63, respiratory rate 18. LUNGS: Clear. HEART: Regular rate and rhythm. ABDOMEN: Soft, nontender, bowel sounds are normoactive. EXTREMITIES: Without cyanosis, clubbing, or edema. NEUROLOGIC: The patient is awake and responsive. Focal left-sided weakness is without change from p revious. SKIN: Warm and dry. LABORATORY DATA: WBC 6.6, hemoglobin 11.0, hematocrit 32.2. Sodium 136, potassium 3.5, chloride 106 , CO2 23, BUN 18, creatinine 0.7, glucose 92. Renal ultrasound is negative for hydronephrosis. IMPRESSION: 1. 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 2. Hypertension. 3. Hypercholesterolemia. 4. Degenerative joint disease. PLAN: Continue neurology followup with Dr. June. Will start amlodipine 5 mg daily for elevated bl ood pressure. Continue physical therapy and social work for discharge planning with possible transfe r to subacute rehab. Drake Martin JD, MD cc: 353 TT: 02/19/2017 11:11:55 Confirmation # [id number] Dictation # [id number] mn
[2017-02-19 12:10] VITALS: BP 118/73; PULSE 62; TEMP 97.9
--- NOTE | 2017-02-19 12:25 | PN ---
DATE: 02/19/2017 CHIEF COMPLAINT: Follow up for status post intraparenchymal hemorrhage. SUBJECTIVE: The patient seen and examined at bedside. Still has left side weakness and drowsy and s ome dysarthria. Repeat CAT scan on 02/17/2017 showed stable foci of intracranial hemorrhage, the larg est in the right frontal lobe and small acute parenchymal hemorrhage in the high right parietal regio n. No significant interval change. No seizure-like activity. Her blood pressures are much more sta bilized. She is currently on the telemetry floor. No acute events overnight. PAST MEDICAL HISTORY: Hypertension, hypercholesterolemia. PAST SURGICAL HISTORY: Cholecystectomy. MEDICATIONS: Reviewed via nurse's reconciliation sheet. SOCIAL HISTORY: No illicit drug use, smoking, or ETOH abuse. FAMILY HISTORY: Noncontributory. REVIEW OF SYSTEMS: A 14-point review of systems is unobtainable at this time due to mental status. PHYSICAL EXAMINATION: VITAL SIGNS: Temperature , pulse rate 63, blood pressure 150/73, respiratory rate 18, oxygen sa turation 99% on room air. GENERAL: The patient is sitting up, but drowsy, in bed, in no acute distress. HEENT: Atraumatic, normocephalic. PERRLA. Extraocular muscles intact. NECK: Supple, no JVD, no adenopathy noted. LUNGS: Clear to auscultation. No adventitious sounds. HEART: S1, S2, normal rate and rhythm. No murmurs, rubs, or gallops. ABDOMEN: Soft, nontender, nondistended. Bowel sounds are present. EXTREMITIES: No clubbing, no cyanosis. Peripheral pulses 2+ felt bilaterally. NEUROLOGIC: The patient is drowsy, in no acute distress. Pupils are reactive. Cranial nerves II-XI I are intact. She responds to verbal commands. MOTOR: Has decreased tone on the left side and 3+/5 left upper extremity weakness and extension 3/5 left lower extremity weakness, flexion and extension. Right side is intact. Toes are upgoing bilate rally. SENSORY: Withdraws to localized noxious stimulus. Light touch intact. Proprioception intact. DEEP TENDON REFLEXES: 1+ throughout. LABORATORY DATA: Sodium is 136, potassium 3.5, chloride 106, carbon dioxide 23, BUN of 18, creatinin e 0.7, random glucose 92. ASSESSMENT AND PLAN: This is an 81-year-old woman with history of hypertension, hypercholesterolemia who presented with left-sided weakness and generalized weakness and found to have a hemorrhagic stro ke in the right frontal and high parietal lobes, which resulted in left hemiparesis and dysarthria, l ikely secondary to hypertensive urgency. At this time, I recommend: 1. Keep blood pressure between 130-140. 2. No antiplatelet medications for at least 3 weeks from the onset of bleed. 3. Will need acute rehabilitation for physical, occupational and speech therapy and will need acute rehabilitation. 4. Monitor electrolytes and correct accordingly. Thank you for this followup. Kumar June MD cc: [phone] TT: 02/19/2017 12:25:11 Confirmation # [id number] Dictation # [id number] mikki
--- NOTE | 2017-02-20 22:57 | DS ---
HOSPITAL COURSE: The patient is an 81-year-old female with history of hypertension, who was admitted to the intensive care unit on 02/16/2017 after suffering a hemorrhagic stroke involving the right fr ontal and parietal lobes. The patient was seen in consultation by neurosurgery, Dr. Barrera. No surg ical intervention was indicated. She was also seen in consultation by neurology, Dr. June. She hdez d an uneventful hospital course and was medically stable for transfer to [facility] for r ehabilitation on 02/19/2017. PHYSICAL EXAMINATION: VITAL SIGNS: As per progress note dictated 02/19/2017. IMPRESSION: 1. Hemorrhagic stroke with left hemiparesis. 2. Hypertension. 3. Hypercholesterolemia. 4. Degenerative joint disease. PLAN: The patient was discharged to [facility] on the following medications: Amlodipin e 5 mg daily and K-Dur 20 mg twice daily. She is maintained on a heart healthy diet. Activity is as per the rehabilitation facility. Drake Martin JD, MD cc: [phone] TT: 02/20/2017 22:56:51 ln
== END 2017-02-19 18:20 | DRG 86 ==
LOC: ED 12:09 → ERH 13:12 → CCU 14:40 → 2RNO 02-18 21:56
PROVIDERS: ADMIT Internal Medicine; ATTEND Internal Medicine
DX: S06.2X0A Diffuse traumatic brain injury without loss of consciousness, initial encounter (principal); G81.94 Hemiplegia, unspecified affecting left nondominant side; R64 Cachexia; M06.9 Rheumatoid arthritis, unspecified; R47.01 Aphasia; Z68.1 Body mass index [BMI] 19.9 or less, adult; S00.03XA Contusion of scalp, initial encounter; I16.0 Hypertensive urgency; R47.1 Dysarthria and anarthria; I12.9 Hypertensive chronic kidney disease with stage 1 through stage 4 chronic kidney disease, or unspecified chronic kidney disease; N18.9 Chronic kidney disease, unspecified; R29.704 NIHSS score 4; E78.00 Pure hypercholesterolemia, unspecified; M19.90 Unspecified osteoarthritis, unspecified site; E87.6 Hypokalemia; W19.XXXA Unspecified fall, initial encounter; Y92.091 Bathroom in other non-institutional residence as the place of occurrence of the external cause; Z87.891 Personal history of nicotine dependence; Z86.73 Personal history of transient ischemic attack (TIA), and cerebral infarction without residual deficits

== ENCOUNTER 2017-03-13 21:10 | Inpatient (IN) | payer MEDICARE, OTHER ==
[2017-03-13 21:11] VITALS: BMI 18.6
[2017-03-13] MEDS ORDERED: Sodium Chloride 0.9% 1,000 ML IV ONE (22:11)
[2017-03-13 22:25] LABS: BASO # 0.02 K/mm3 (0.0-2.0); BASO % 0.2 % (0.0-3.0); EOS % 0.1 % (1.5-5.0); GRAN # 7.03 (1.4-6.5); GRAN % 73.6 % (50.0-68.0); HEMOGLOBIN 12.6 gm/dL (12.0-16.0); LYMPH # 1.6 (1.2-3.4); LYMPH % 16.6 % (22.0-35.0); MEAN CORPUSCULAR HEMOGLOBIN 29.4 pg (25.0-35.0); MEAN CORPUSCULAR HGB CONC 33.1 g/dl (31.0-37.0); MEAN PLATELET VOLUME 8.9 fl (7.0-11.0); MONO # 0.9 (0.1-0.6); MONO % 9.5 % (1.0-6.0); PLATELET COUNT 268 10^3/uL (120.0-450.0); RBC 4.28 10^6/uL (3.5-6.1); RED CELL DISTRIBUTION WIDTH 14.1 % (11.5-14.5); WHITE BLOOD COUNT 9.6 10^3/ul (4.5-11.0)
[2017-03-13 22:25] LABS: URINE BILIRUBIN NEGATIVE (NEGATIVE); URINE BLOOD MODERATE (NEGATIVE); URINE GLUCOSE (UA) NEGATIVE (NEGATIVE); URINE LEUKOCYTE ESTERASE NEGATIVE Leu/uL (NEGATIVE); URINE NITRATE NEGATIVE (NEGATIVE); URINE PROTEIN TRACE mg/dL (<30 mg/dL); URINE UROBILINOGEN 0.2 E.U./dL (<1 E.U./dL)
[2017-03-13 22:27] LABS: VENOUS BLOOD GAS BASE EXCESS 4.8 mmol/L (0.0-2.0); VENOUS BLOOD GAS PO2 64 mm/Hg (30-55); VENOUS BLOOD PH 7.43 (7.32-7.43)
[2017-03-13 22:29] LABS: URINE COLOR YELLOW (YELLOW)
[2017-03-13 22:33] LABS: INR 0.95 (0.93-1.08); PARTIAL THROMBOPLASTIN TIME 26.6 Seconds (23.7-30.8); PROTHROMBIN TIME 10.3 Seconds (9.9-11.8)
[2017-03-13 22:35] LABS: URINE APPEARANCE CLEAR (CLEAR)
[2017-03-13 22:36] LABS: URINE BACTERIA FEW (NEG); URINE EPITHELIAL CELLS 0 - 2 /hpf (0-5)
[2017-03-13 22:38] LABS: ALB/GLOB RATIO 1.1 (1.1-1.8); ALBUMIN 4.2 g/dL (3.0-4.8); ALT/SGPT 30 U/L (7-56); AST/SGOT 41 U/L (15-39); BLOOD UREA NITROGEN 43 mg/dL (7-21); CALCIUM 9.8 mg/dL (8.4-10.5); GFR AFRICAN-AMERICAN > 60; GFR NON-AFRICAN AMERICAN > 60; MAGNESIUM 2.5 mg/dL (1.7-2.2)
[2017-03-13 22:49] LABS: TROPONIN I 0.05 ng/mL
--- NOTE | 2017-03-13 23:22 | CT ---
EXAM: CT Head Without Intravenous Contrast CLINICAL HISTORY: The patient age is 81 years old and is female; Signs and symptoms; Altered mental status/memory loss; Additional info: AMS, h/o recent hemorrhagic CVA Facility exam id and description: Ct heads head w/o contrast TECHNIQUE: Axial computed tomography images of the head/brain without intravenous contrast. This CT exam was performed using one or more of the following dose reduction techniques: automated exposure control, adjustment of the mA and/or kV according to patient size, and/or use of iterative reconstruction technique. EXAM DATE/TIME: 03/13/2017 9:31 PM COMPARISON: CT - HEAD W/O CONTRAST 02/17/2017 7:45:17 AM FINDINGS: Brain: There are areas of hyperdense hemorrhage within the right frontal parietal lobes. There is a decrease in size of the hemorrhage within the right frontal lobe anteriorly on series 2 image 30. Due to persistence of hyperdensity in this region, a rebleed is considered likely. The largest area of acute hemorrhage is seen within the right frontal parietal lobe on series 2 image 45 measuring 5.0 x 3.5 cm, which is new. New acute subarachnoid hemorrhage is also visualized within the right posterior frontal lobe. New acute intra-ventricular hemorrhage is also visualized. Hypodense edema is visualized adjacent to the areas of parenchymal hemorrhage. There are scattered foci of hypodensity within the cerebral white matter, likely representing small vessel ischemic disease in a patient this age. There is effacement of the sulci within the right frontal lobe. Atrophic changes are noted the remaining sulci. The acuity of the white matter disease is indeterminate. There are calcifications within the globus pallidus bilaterally, which are likely physiologic. Midline shift: There is midline shift to the left of approximately 6 mm, which is a progression. Ventricles: The ventricles are stable in size. Bones/joints: The calvarium demonstrates no evidence for a depressed fracture. Soft tissues: No acute abnormality. Vasculature: There is atherosclerotic calcification of the cavernous internal carotid arteries and distal vertebral arteries. Sinuses: Unremarkable as visualized. No acute sinusitis. Mastoid air cells: No mastoid effusion. IMPRESSION: 1. There are areas of hyperdense hemorrhage within the right frontal parietal lobes. There is a decrease in size of the hemorrhage within the right frontal lobe anteriorly on series 2 image 30. Due to persistence of hyperdensity in this region, a rebleed is considered likely. The largest area of acute hemorrhage is seen within the right frontal parietal lobe on series 2 image 45 measuring 5.0 x 3.5 cm, which is new. 2. New acute subarachnoid hemorrhage is also visualized within the right posterior frontal lobe. New acute intraventricular hemorrhage is also visualized. 3. Hypodense edema is visualized adjacent to the areas of parenchymal hemorrhage. 4. There is midline shift to the left of approximately 6 mm, which is a progression. 5. There are scattered foci of hypodensity within the cerebral white matter, likely representing small vessel ischemic disease in a patient this age. 6. Mild atrophy. 7. Follow-up CT in 12-24 hours is recommended.
--- NOTE | 2017-03-14 01:21 | ED PDOC ---
Arrival/HPI - General Chief Complaint: Altered Mental Status Time Seen by Provider: 03/13/17 21:30 Historian: Family, EMS - History of Present Illness Narrative History of Present Illness (Text): 03/14/17 21:30 Adeline Tom is an 81 year old female brought in by ALS, whose past medical history includes hypertension, rheumatoid arthritis, and small bowel obstruction , who presents to the emergency department complaining of decreased level of consciousness and questionable fever today as per ALS. According to family in emergency department, patient also shows a change in mental status that began yesterday morning. Family states that prior to yesterday morning, patient was speaking and interacting with family. Currently, patient is nonverbal and is in no apparent distress. There are no other complaints present at this time. PMD: Dr. Martin Time/Duration: 24 hours Symptom Onset: Gradual Symptom Course: Unchanged Severity Level: Mild Activities at Onset: Rest Context: Home Past Medical History - Provider Review Nursing Documentation Reviewed: Yes - Reproductive Menopause: Yes - Cardiac Hx Hypertension: Yes - Pulmonary Hx Respiratory Disorders: No - Neurological HX Cerebrovascular Accident: Yes - HEENT Hx HEENT Disorder: No - Renal Hx Renal Disorder: No - Endocrine/Metabolic Hx Endocrine Disorders: No - Hematological/Oncological Hx Blood Disorders: No - Integumentary Hx Dermatological Disorder: No - Musculoskeletal/Rheumatological Hx Rheumatoid Arthritis: Yes - Gastrointestinal Hx Gastrointestinal Disorders: No - Genitourinary/Gynecological Hx Genitourinary Disorders: No - Psychiatric Hx Psychophysiologic Disorder: No Hx Substance Use: No - Surgical History Hx Cholecystectomy: Yes Family/Social History - Physician Review Nursing Documentation Reviewed: Yes Family/Social History: No Known Family HX Smoking Status: Former Smoker Hx Alcohol Use: No Hx Substance Use: No Allergies/Home Meds Allergies/Adverse Reactions: Allergies No Known Allergies Allergy (Verified 02/16/17 12:12) Home Medications: Home Meds Medication Instructions Recorded Confirmed Acetaminophen [Tylenol 325mg tab] 650 mg PO Q6 PRN 03/13/17 03/13/17 Atorvastatin [Lipitor] 40 mg PO HS 03/13/17 03/13/17 Dextran 70/Hypromellose 1 each OP BID 03/13/17 03/13/17 [Artificial Tears] Famotidine [Pepcid] 20 mg PO DAILY 03/13/17 03/13/17 Levetiracetam [Roweepra] 500 mg PO DAILY 03/13/17 03/13/17 Potassium CL 10 MEQ/50 ML 20 meq PO DAILY 03/13/17 03/13/17 [Potassium CL 10MEQ/50ML STERILE WATER] amLODIPine [Norvasc] 5 mg PO DAILY 03/13/17 03/13/17 cloNIDine [clonidine HCl] 0.1 mg PO Q8 PRN 03/13/17 03/13/17 Review of Systems - Review of Systems Constitutional: Fevers (questionable fever), Other (decreased level of consciousness; change in mental status) Eyes: absent: Vision Changes ENT: absent: Hearing Changes Respiratory: absent: SOB, Cough Cardiovascular: absent: Chest Pain Gastrointestinal: absent: Abdominal Pain Genitourinary Female: absent: Dysuria, Frequency, Urine Output Changes Musculoskeletal: absent: Arthralgias, Back Pain, Neck Pain Skin: absent: Rash, Pruritis Neurological: absent: Headache, Dizziness Endocrine: absent: Diaphoresis Hemo/Lymphatic: absent: Adenopathy Psychiatric: absent: Anxiety, Depression Physical Exam Vital Signs Reviewed: Yes Vital Signs Temp Pulse Resp BP Pulse Ox 03/14/17 00:32 108 H 18 148/81 98 03/13/17 23:25 103 H 19 122/80 96 03/13/17 21:20 99.7 F H 97 H 22 165/84 H 97 03/13/17 21:11 99.7 F H 89 18 165/84 H 96 Temperature: Febrile Blood Pressure: Hypertensive Pulse: Regular Respiratory Rate: Normal Finger Stick Blood Glucose: 106 - Systems Exam Head: Present: Atraumatic, Normocephalic Pupils: Present: PERRL Extroacular Muscles: Present: EOMI Conjunctiva: Present: Normal Ears: Present: Normal Mouth: Present: Dry Neck: Present: Normal Range of Motion Respiratory/Chest: Present: Clear to Auscultation, Good Air Exchange. No: Respiratory Distress, Accessory Muscle Use Cardiovascular: Present: Other (Systolic murmur) Abdomen: Present: Normal Bowel Sounds. No: Tenderness, Distention, Peritoneal Signs Upper Extremity: Present: Normal Inspection. No: Cyanosis, Edema Lower Extremity: Present: Normal Inspection. No: Edema Neurological: Present: Other (Not following commands). No: GCS=15, Speech Normal (Mumbling), Normal Sensory Function, Normal Cerebellar Funct Skin: Present: Warm, Dry, Normal Color. No: Rashes Medical Decision Making ED Course and Treatment: 03/14/17 21:30 Impression: 81 year old female complaining of decreased level of consciousness, questionable fever today and change in mental status since yesterday. Differential Diagnosis include but are not limited to: Sepsis vs. CVA Plan: -- EKG -- Chest X-ray -- Head CT w/o contrast -- Blood Culture -- Urinalysis and Urine Culture -- Labs -- IV Fluids -- Reassess and disposition Prior Visits: Notes and results from previous visits were reviewed. Patient last seen in ED on 02/16/17 for not being in her usual states of health that day. Patient was admitted to ICU for further evaluation. Progress Notes: EKG: Ordered, reviewed, and independently interpreted the EKG. Rate : 93 BPM Rhythm : NSR Interpretation : RBBB and right atrial enlargement. Comparison : No previous EKG for comparison. 03/14/17 21:35 Two sons and a daughter is present in emergency department and states patient is DNR/DNI. At this point, wants comfort measures done for patient. 03/14/17 23:35 CT Head Without Intravenous Contrast: Dictated and Authenticated by: Francisco Rutledge MD FINDINGS: Brain: There are areas of hyperdense hemorrhage within the right frontal parietal lobes. There is a decrease in size of the hemorrhage within the right frontal lobe anteriorly on series 2 image 30. Due to persistence of hyperdensity in this region, a rebleed is considered likely. The largest area of acute hemorrhage is seen within the right frontal parietal lobe on series 2 image 45 measuring 5.0 x 3.5 cm, which is new. New acute subarachnoid hemorrhage is also visualized within the right posterior frontal lobe. New acute intra-ventricular hemorrhage is also visualized. Hypodense edema is visualized adjacent to the areas of parenchymal hemorrhage. There are scattered foci of hypodensity within the cerebral white matter, likely representing small vessel ischemic disease in a patient this age. There is effacement of the sulci within the right frontal lobe. Atrophic changes are noted the remaining sulci. The acuity of the white matter disease is indeterminate. There are calcifications within the globus pallidus bilaterally, which are likely physiologic. Midline shift: There is midline shift to the left of approximately 6 mm, which is a progression. Ventricles: The ventricles are stable in size. Bones/joints: The calvarium demonstrates no evidence for a depressed fracture. Soft tissues: No acute abnormality. Vasculature: There is atherosclerotic calcification of the cavernous internal carotid arteries and distal vertebral arteries. Sinuses: Unremarkable as visualized. No acute sinusitis. Mastoid air cells: No mastoid effusion. IMPRESSION: 1. There are areas of hyperdense hemorrhage within the right frontal parietal lobes. There is a decrease in size of the hemorrhage within the right frontal lobe anteriorly on series 2 image 30. Due to persistence of hyperdensity in this region, a rebleed is considered likely. The largest area of acute hemorrhage is seen within the right frontal parietal lobe on series 2 image 45 measuring 5.0 x 3.5 cm, which is new. 2. New acute subarachnoid hemorrhage is also visualized within the right posterior frontal lobe. New acute intraventricular hemorrhage is also visualized. 3. Hypodense edema is visualized adjacent to the areas of parenchymal hemorrhage. 4. There is midline shift to the left of approximately 6 mm, which is a progression. 5. There are scattered foci of hypodensity within the cerebral white matter, likely representing small vessel ischemic disease in a patient this age. 6. Mild atrophy. 7. Follow-up CT in 12-24 hours is recommended. The findings were verbally communicated via telephone conference with Ebenezer Melendez at 11:33 PM EDT on 03/13/2017. The findings were acknowledged and understood. Case discussed with Dr. Martin, patient's PMD who was called after CT scan reading, who requests neurology and ICU consult. Case discussed with Dr. June, Neurology, who is aware and recommends Keppra for seizure prophylaxis which patient is currently on. Case discussed with Dr. Worthington, Neurosurgery, who states that no surgical intervention is needed at this time. Case discussed with Director Of Customer Acquisition, who recommends [facility] admission. During entire stay at emergency department, patient's heart rate, respiratory rate, and blood pressure were stable. - Lab Interpretations Lab Results: 03/13/17 21:45 03/13/17 21:45 Lab Results 03/13/17 22:13: Urine Color Yellow, Urine Appearance Clear, Urine pH 6.0, Ur Specific [place] 1.025, Urine Protein Trace H, Urine Glucose (UA) Negative, Urine Ketones Negative, Urine Blood Moderate H, Urine Nitrate Negative, Urine Bilirubin Negative, Urine Urobilinogen 0.2, Ur Leukocyte Esterase Negative, Urine RBC 2 - 5, Urine WBC 1 - 3, Ur Epithelial Cells 0 - 2, Urine Bacteria Few 03/13/17 21:45: pO2 64 H, VBG pH 7.43, VBG pCO2 45.0, VBG HCO3 29.9 H, VBG Total CO2 31.3 H, VBG O2 Sat (Calc) 94.8 H, VBG Base Excess 4.8 H, VBG Potassium 4.3, Sodium 143.0, Chloride 109.0 H, Glucose 117 H, Lactate 1.5, FiO2 21.0, Venous Blood Potassium 4.3 03/13/17 21:45: Sodium 142, Chloride 105, Potassium 3.9, Carbon Dioxide 27, Anion Gap 14, BUN 43 H, Creatinine 0.6, Est GFR ( Amer) > 60, Est GFR ( Non-Af Amer) > 60, Random Glucose 108, Calcium 9.8, Magnesium 2.5 H, Total Bilirubin 1.1, AST 41 H, ALT 30, Alkaline Phosphatase 70, Lactate Dehydrogenase 481, Total Creatine Kinase 47, Troponin I 0.05 D, Total Protein 8.2, Albumin 4.2, Globulin 4.0, Albumin/Globulin Ratio 1.1 03/13/17 21:45: PT 10.3, INR 0.95, APTT 26.6 03/13/17 21:45: WBC 9.6 D, RBC 4.28, Hgb 12.6, Hct 38.1, MCV 89.0, MCH 29.4, MCHC 33.1, RDW 14.1, Plt Count 268, MPV 8.9, Gran % 73.6 H, Lymph % (Auto) 16.6 L, Pope % (Auto) 9.5 H, Eos % (Auto) 0.1 L, Baso % (Auto) 0.2, Gran # 7.03 H, Lymph # 1.6, Pope # 0.9 H, Eos # 0.0, Baso # 0.02 03/13/17 21:34: POC Glucose (mg/dL) 106 I have reviewed the lab results: Yes - RAD Interpretation Radiology Orders: 03/13/17 21:31 HEAD W/O CONTRAST [CT] Stat CHEST ONE VIEW [RAD] Stat - Medication Orders Current Medication Orders: Levetiracetam 500 mg/ Sodium (Chloride) 105 mls @ 420 mls/hr IV Q12 CHRISTOFER Last Admin: 03/14/17 01:57 Dose: 420 mls/hr Discontinued Medications Sodium Chloride (Sodium Chloride 0.9%) 1,000 mls @ 250 mls/hr IV .Q4H ONE Stop: 03/14/17 02:10 Last Admin: 03/13/17 22:18 Dose: 250 mls/hr NIHSS Scale ([place]) Time Performed: 21:20 - How Severe is the Stoke Baseline Level of Consciousness: 3=Unresponsive LOC to Questions: 2=Neither correct LOC to commands: 2=Neither correct Best Gaze: 0=Normal Visual: 0=No visual loss Facial: 2=Partial (lower face paralysis) Motor Arm - Left: 4=No movement Motor Arm - Right: 4=No movement Motor Leg - Left: 4=No movement Motor Leg - Right: 4=No movement Limb Ataxia: 0=Absent Sensory: 0=Normal Best Language: 3=Mute Dysarthia: 2=Severe, near unintelligible or worse Extinction & Inattention (Neglect): 2=Profound neglect(does not recognize own hand or orients to one side) Score: 32 Risk Level: Severe Stroke Risk rTPA Inclusion/Exclusion - Refusal of Treatment Patient Refused Treatment: No - Inclusion Criteria for Altepase Patient is 18 years or Older: Yes The Clinical Diagnosis of Ischemic Stroke That is Causing a Potentially Disabling Neurological Deficit: No Time of Onset is Well Established to be Less Than 270 Minute Before Treatment Would Begin: No Risk/Benefit Discussed With Patient/Family Member Present: No - Exclusion Criteria for Altepase History of: Intracranial hemorrhage Active Internal Bleeding: Yes Evidence of an Intracranial Hemorrhage: Yes - Scribe Statement The provider has reviewed the documentation as recorded by the Adriano Shane Provider Scribe Attestation: All medical record entries made by the Adriano were at my direction and personally dictated by me. I have reviewed the chart and agree that the record accurately reflects my personal performance of the history, physical exam, medical decision making, and the department course for this patient. I have also personally directed, reviewed, and agree with the discharge instructions and disposition. Disposition/Present on Arrival - Present on Arrival Any Indicators Present on Arrival: Yes History of DVT/PE: No History of Uncontrolled Diabetes: No Urinary Catheter: No History of Decub. Ulcer: Yes History Surgical Site Infection Following: None - Disposition Have Diagnosis and Disposition been Completed?: Yes Diagnosis: Intracranial hemorrhage Disposition: HOSPITALIZED Disposition Time: 00:50 Condition: CRITICAL Critical Care Time - Critical Care Note Total Time (in mins): 40 Documented critical care: time excludes all time spent performing seperately billable procedures.
--- NOTE | 2017-03-14 01:27 | CP.PCM.CON ---
Addendum entered and electronically signed by Niraj Zavala DO 03/14/17 11:00: Patient seen and examined with Dr. Escoto. Agree with exam and plan. Briefly, this is an 81 yo F recently at [facility] 1 month prior for hemorrhagic stroke initially thought to be secondary to head trauma from fall. Patient noted to be increasingly obtunded and unresponsive at halfway x2 days, so brought in by family, found to have rebleed of prior R-frontal hemorrhage and new Subarachnoid hemorrhage. Nothing acutely to be done as per Neurosurg discussion with ED attending. As per family wishes, patient is DNR/DNI and does not want aggressive measures. Family believes that patient would likely want to pursue palliative/hospice care. Patient to be admitted to med-surg floor for monitoring, palliative care consulted to meet with sons and daughter in AM to discuss goals of care and possible hospice/comfort care. Original Note: <MEGAN ESCOTO - Last Filed: 03/14/17 06:49> History of Present Illness - History of Present Illness History of Present Illness: Patient is an 81 year old female with a past medical history of hemorrhagic stroke with left hemiparesis and hypertension presented to the ED today with family members complaining of her recent decline in responsiveness. Patient has been a resident of [facility] since her last admission to [place]. Her last admission was due to patient falling in the bathroom and hitting her head which caused her an initial altered mental status, in which she was diagnosed with suffering a hemorrhagic stroke involving the right frontal and parietal lobes. PMHx: as above Allergies:NKDA Home medications: clonidine 0.1 PO q8 PRN, tylenol 650 mg PO q6 PRN, Roweepra 500 mg PO daily, Lipitor 40 mg PO HS, Norvasc 5 mg PO daily Current medications: Roweepra 500 mg in NS PSHx: cholecystectomy Review of Systems: unobtainable secondary to patient unresponsiveness Constitutional: nad Head and Neck: neck supple, no jvd, trachea midline, carotid midline, no cervical/head mass Eyes: gorge, nonicteric sclera, eom intact ENT: auditory acuity grossly intact, throat not congested, no nasal deformity Cardio: rrr, no m/r/g, no carotid bruit, nml s1 and s2 Pulm: no accessory muscle use, equal nml breath sounds bilaterally, ctab Abd: s/nt/nd, nbs x 4 q, no palpable masses Derm: no rashes, no ulcers, no lesions Extr: no edema, no cyanosis, no calf tenderness, no lesions, no varicosities Lab examination:labs reveal a wbc count of 9.6, H&H of 12.6 and 38.1, plt count of 268, PT 10.3, INR 0.95, PTT 26.6, PO2 64,VBG pH 7.43, VBG pCO2 45, VBG HCO3 29.9, VBG total CO2 31.3, SOdium 143, Chlroide 109, glucose 117. lactate 1.5, potassium 3.9, BUN 43, Mg 2.5, AST 41, ALT 30, Calcium 9.8, lactate dehydrogenase 481, albumin 4.2, troponin I 0.05 Past Patient History - Past Social History Smoking Status: Former Smoker - CARDIAC Hx Hypertension: Yes - PULMONARY Hx Respiratory Disorders: No - NEUROLOGICAL HX Cerebrovascular Accident: Yes - HEENT Hx HEENT Problems: No - RENAL Hx Chronic Kidney Disease: No - ENDOCRINE/METABOLIC Hx Endocrine Disorders: No - HEMATOLOGICAL/ONCOLOGICAL Hx Blood Disorders: No - INTEGUMENTARY Hx Dermatological Problems: No - MUSCULOSKELETAL/RHEUMATOLOGICAL Hx Rheumatoid Arthritis: Yes - GASTROINTESTINAL Hx Gastrointestinal Disorders: No - GENITOURINARY/GYNECOLOGICAL Hx Genitourinary Disorders: No - PSYCHIATRIC Hx Psychophysiologic Disorder: No Hx Substance Use: No - SURGICAL HISTORY Hx Cholecystectomy: Yes Meds Allergies/Adverse Reactions: Allergies Allergy/AdvReac Type Severity Reaction Status Date / Time No Known Allergies Allergy Verified 02/16/17 12:12 - Medications Medications: Current Medications Sodium Chloride (Sodium Chloride 0.9%) 1,000 mls @ 250 mls/hr IV .Q4H ONE Stop: 03/14/17 02:10 Last Admin: 03/13/17 22:18 Dose: 250 mls/hr Results - Vital Signs Recent Vital Signs: Last Vital Signs Temp 99.7 F H 03/13/17 21:20 Pulse 108 H 03/14/17 00:32 Resp 18 03/14/17 00:32 BP 148/81 03/14/17 00:32 Pulse Ox 98 03/14/17 00:32 - Labs Result Diagrams: 03/13/17 21:45 03/13/17 21:45 Labs: Laboratory Results - last 24 hr 03/13/17 03/13/17 03/13/17 21:34 21:45 21:45 WBC 9.6 D RBC 4.28 Hgb 12.6 Hct 38.1 MCV 89.0 MCH 29.4 MCHC 33.1 RDW 14.1 Plt Count 268 MPV 8.9 Gran % 73.6 H Lymph % (Auto) 16.6 L [place] % (Auto) 9.5 H Eos % (Auto) 0.1 L Baso % (Auto) 0.2 Gran # 7.03 H Lymph # 1.6 [place] # 0.9 H Eos # 0.0 Baso # 0.02 PT 10.3 INR 0.95 APTT 26.6 pO2 VBG pH VBG pCO2 VBG HCO3 VBG Total CO2 VBG O2 Sat (Calc) VBG Base Excess VBG Potassium Sodium Chloride Glucose Lactate FiO2 Potassium Carbon Dioxide Anion Gap BUN Creatinine Est GFR ( Amer) Est GFR (Non-Af Amer) POC Glucose (mg/dL) 106 Random Glucose Calcium Magnesium Total Bilirubin AST ALT Alkaline Phosphatase Lactate Dehydrogenase Total Creatine Kinase Troponin I Total Protein Albumin Globulin Albumin/Globulin Ratio Venous Blood Potassium Urine Color Urine Appearance Urine pH Ur Specific [place] Urine Protein Urine Glucose (UA) Urine Ketones Urine Blood Urine Nitrate Urine Bilirubin Urine Urobilinogen Ur Leukocyte Esterase Urine RBC Urine WBC Ur Epithelial Cells Urine Bacteria 03/13/17 03/13/17 03/13/17 21:45 21:45 22:13 WBC RBC Hgb Hct MCV MCH MCHC RDW Plt Count MPV Gran % Lymph % (Auto) [place] % (Auto) Eos % (Auto) Baso % (Auto) Gran # Lymph # [place] # Eos # Baso # PT INR APTT pO2 64 H VBG pH 7.43 VBG pCO2 45.0 VBG HCO3 29.9 H VBG Total CO2 31.3 H VBG O2 Sat (Calc) 94.8 H VBG Base Excess 4.8 H VBG Potassium 4.3 Sodium 142 143.0 Chloride 105 109.0 H Glucose 117 H Lactate 1.5 FiO2 21.0 Potassium 3.9 Carbon Dioxide 27 Anion Gap 14 BUN 43 H Creatinine 0.6 Est GFR ( Amer) > 60 Est GFR (Non-Af Amer) > 60 POC Glucose (mg/dL) Random Glucose 108 Calcium 9.8 Magnesium 2.5 H Total Bilirubin 1.1 AST 41 H ALT 30 Alkaline Phosphatase 70 Lactate Dehydrogenase 481 Total Creatine Kinase 47 Troponin I 0.05 D Total Protein 8.2 Albumin 4.2 Globulin 4.0 Albumin/Globulin Ratio 1.1 Venous Blood Potassium 4.3 Urine Color Yellow Urine Appearance Clear Urine pH 6.0 Ur Specific [place] 1.025 Urine Protein Trace H Urine Glucose (UA) Negative Urine Ketones Negative Urine Blood Moderate H Urine Nitrate Negative Urine Bilirubin Negative Urine Urobilinogen 0.2 Ur Leukocyte Esterase Negative Urine RBC 2 - 5 Urine WBC 1 - 3 Ur Epithelial Cells 0 - 2 Urine Bacteria Few Assessment & Plan - Assessment and Plan (Free Text) Assessment: This is an 81 year old female with a PMHx of hemorrhagic stroke with hemiparesis who is in critical condition secondary to new subarachnoid hemorrhage as depicted by CT. Patient is unresponsive to stimuli. Patient's family agrees that considering her DNI/DNR status it is best to seek palliative care. The family has expressed their desire to not have patient transferred to ICU Plan: Neurology -Unresponsive, not following commands, no spontaneous movements -CT head reveals rebleed of prior right frontal hemorrhagic stroke, and new right parietal subarachnoid hemorrhage -Neuro consulted, recommends continuing keppra for seizure prophylaxis -Neurosurgery consulted, no acute surgical intervention indicated at this time -Aspiration and seizure precautions, continuing keppra 500 mg IV q12 as per neuro -Palliative consulted regarding goals of care, prognosis grim Cardiovascular -patient's blood pressure is stable at 144/90 and HR 98. -maintain strict BP control in setting of hemorrhagic stroke Pulmonology -patient is at 95% O2 on room air -No supplemental O2 indicated at this time -aspiration precautions, head of bed to 30 degrees Gastrointestinal -NPO -Protonix for GI ppx Renal -0.6 creatinine, will continue to monitor -monitor and replete electrolytes as needed Infectious Disease -no leukocytosis -afebrile Hematology -H&H 12.6 and 38.1 respectively -continue to monitor patient seen, evaluated, and discussed with the attending Dr. Loera based on evaluation of this patient and the stated goals of care as per patient' s family, the patient would not benefit from admission to the ICU at this time. As per neurosurgery there is no acute surgical intervention to be done, and family is leading in the direction of hospice/comfort care. Palliative is being consulted to discuss with family goals of care. Patient remains DNR/DNI as per both sons at bedside. Please re consult if patient's state changes or if patient 's family reverses decision regarding code status and aggressiveness of care. At this time, we recommend admission to med surg pending palliative evaluation and family meeting. <Luz Maria SMITH,Parish - Last Filed: 03/24/17 05:18> Results - Vital Signs Recent Vital Signs: Last Vital Signs Temp 99.5 F 03/18/17 16:00 Pulse 79 03/18/17 16:00 Resp 19 03/18/17 16:00 BP 157/83 H 03/18/17 16:00 Pulse Ox 99 03/18/17 16:00 - Labs Result Diagrams: 03/17/17 06:40 03/18/17 15:33 Attending/Attestation - Attestation I have personally seen and examined this patient.: Yes I have fully participated in the care of the patient.: Yes I have reviewed all pertinent clinical information: Yes Notes (Text): 03/24/17 05:18 -I agree with the above ICU evaluation note completed by the resident physicians. Patient doesn't require ICU level of care at this time.
[2017-03-14] MEDS ORDERED: levETIRAcetam 500 MG in Sodium Chloride 0.9% 100 ML IV SCH (01:30)
[2017-03-14] MEDS ORDERED: Acetaminophen 650mg/20.3ml solution UD PO STA (05:11)
--- NOTE | 2017-03-14 08:55 | RAD ---
PROCEDURE: CHEST RADIOGRAPH, 1 VIEW HISTORY: r/o infiltrate COMPARISON: Comparison is made to the previous study dated 02/16/2017 FINDINGS: LUNGS: No evidence of new infiltrate or consolidation in the lungs. Hyperinflation of the lungs is again noted. PLEURA: No pneumothorax or pleural fluid seen. CARDIOVASCULAR: Normal. OSSEOUS STRUCTURES: Internal fixation at the left humerus body and neck is again noted. VISUALIZED UPPER ABDOMEN: Normal. OTHER FINDINGS: None. IMPRESSION: No active disease.
--- NOTE | 2017-03-14 10:23 | CP.PCM.CON ---
<Suze Nunez - Last Filed: 03/14/17 11:35> History of Present Illness - History of Present Illness History of Present Illness: PGY-2 neurology Consult note for Dr Kumar June. Reason for consult: AMS. Patient is an 81 y/o with PMH of htn, hld, RA, whom was brought in from [facility] 2nd to [facility]. Patient was admitted at [facility] [place] in February s/p fall and was found to have intracranial hemorrhage, the largest in the right frontal lobe and small acute parenchymal hemorrhage in the high right parietal region. Neurosurgeon recommended no surgical intervention. Patient was discharged to [facility]. As per EMR, patient was verbal 2 days prior to this presentation. Patient became more lethargic, and non verbal and was brought to ER for evaluation. Repeat CT last night revealed hyperdense hemorrhage within the right frontal parietal lobes likely a re-bleed, new acute subarachnoid hemorrhage in the right posterior frontal lobe, new acute intravascular hemorrhage and 6 mm midline shift. As per ED note, neurosurgery recommended no surgical intervention. Neurology was consulted for further recommendations. Patient was restarted on keppra for seizure prophylaxis. Patient is currently very lethargic responds to simple commands. Denies pain, denies headache, denies cp or sob. PMH: HTN, RA, and HLD PSH: cholecystectomy Social: no tobacco, alcohol or illicit drug use history. Allergy: NKDA Home meds: please see EMR. Review of Systems - Review of Systems Systems not reviewed;Unavailable: Altered Mental Status Past Patient History - Tetanus Immunizations Tetanus Immunization: Unknown - Past Medical History & Family History Past Medical History?: Yes - Past Social History Smoking Status: Never Smoked Alcohol: None Drugs: Denies Home Situation {Lives}: Long Term - CARDIAC Hx Hypertension: Yes - PULMONARY Hx Respiratory Disorders: No - NEUROLOGICAL HX Cerebrovascular Accident: Yes - HEENT Hx HEENT Problems: No - RENAL Hx Chronic Kidney Disease: No - ENDOCRINE/METABOLIC Hx Endocrine Disorders: No - HEMATOLOGICAL/ONCOLOGICAL Hx Blood Disorders: No - INTEGUMENTARY Hx Dermatological Problems: No - MUSCULOSKELETAL/RHEUMATOLOGICAL Hx Rheumatoid Arthritis: Yes - GASTROINTESTINAL Hx Gastrointestinal Disorders: No - GENITOURINARY/GYNECOLOGICAL Hx Genitourinary Disorders: No - PSYCHIATRIC Hx Psychophysiologic Disorder: No Hx Substance Use: No - SURGICAL HISTORY Hx Cholecystectomy: Yes Meds Allergies/Adverse Reactions: Allergies Allergy/AdvReac Type Severity Reaction Status Date / Time No Known Allergies Allergy Verified 02/16/17 12:12 - Medications Medications: Current Medications Levetiracetam (Keppra 500mg Ivpb) 500 mg in 100 mls @ 420 mls/hr IVPB Q12 [facility] Physical Exam - Constitutional Appears: No Acute Distress, Older Than Stated Age, Confused, Cachectic, Chronically Ill - Head Exam Head Exam: ATRAUMATIC, NORMAL INSPECTION, NORMOCEPHALIC - Respiratory Exam Respiratory Exam: Clear to Auscultation Bilateral, NORMAL BREATHING PATTERN. absent: Rhonchi, Wheezes, Respiratory Distress - Cardiovascular Exam Cardiovascular Exam: Tachycardia, REGULAR RHYTHM, +S1, +S2 - GI/Abdominal Exam GI & Abdominal Exam: Normal Bowel Sounds, Soft. absent: Distended, Tenderness - Neurological Exam Additional comments: Neuro- Patient is drowsy, not alert to person and time. Alert to place. In no acute distress. Cranial nerves: Pupils reactive to light, Right lateral gaze on the right side, pupils are reactive, + left sided mild facial droop, tongue is midline, no atrophy, patient is unable to smile. patient responds to some verbal commands. Motor: decreased tone on the left side, left UE and LLE are protracted, unable to extend the upper left extremity, 2/5 left upper and lower extremities weakness, 4/5 right upper and lower extremities weakness for both flexion and extension, contracted b/l wrist flexors. upward going toes bilaterally. Reflexes are brisk throughout. Sensory: light touch intact, proprioception intact, withdraws to pain, Results - Vital Signs Recent Vital Signs: Last Vital Signs Temp 97.7 F 03/14/17 08:46 Pulse 102 H 03/14/17 08:46 Resp 18 03/14/17 08:46 BP 133/90 03/14/17 08:46 Pulse Ox 97 03/14/17 08:46 - Labs Result Diagrams: 03/13/17 21:45 03/13/17 21:45 Assessment & Plan - Assessment and Plan (Free Text) Assessment: Patient is an 81 y/o with PMH of htn, hld, who presented with worsening AMS and was found to have worsening hyperdense hemorrhage within the right frontal parietal lobes likely a re-bleed, new acute subarachnoid hemorrhage in the right posterior frontal lobe, new acute intravascular hemorrhage and 6 mm midline shift resulting in worsening mental status, worsening right sided hemiparesis, and dysarthria. Plan: - Continue keppra 500 mg IV bid for seizure prophylaxis. - Keep SBP between 120-130 - Monitor electrolytes and correct accordingly - Follow up with neurosurgery recommendations. Patient seen, examined, and case discussed with Dr June. - Date & Time Date: 03/14/17 Time: 11:05 <Kumar June - Last Filed: 03/14/17 16:18> Meds - Medications Medications: Current Medications Acetaminophen (Tylenol 650 Mg Supp) 650 mg RC Q6H PRN PRN Reason: Fever >100.4 F Last Admin: 03/14/17 13:37 Dose: 650 mg Levetiracetam (Keppra 500mg Ivpb) 500 mg in 100 mls @ 420 mls/hr IVPB Q12 [facility] Last Admin: 03/14/17 10:48 Dose: 420 mls/hr Potassium Chloride 10 meq/ (Dextrose/Sodium Chloride) 1,005 mls @ 50 mls/hr IV .Q20H6M [facility] Last Admin: 03/14/17 13:42 Dose: 50 mls/hr Results - Vital Signs Recent Vital Signs: Last Vital Signs Temp 97.7 F 03/14/17 08:46 Pulse 102 H 03/14/17 08:46 Resp 18 03/14/17 08:46 BP 133/90 03/14/17 08:46 Pulse Ox 97 03/14/17 08:46 - Labs Result Diagrams: 03/13/17 21:45 03/13/17 21:45 Attending/Attestation - Attestation I have personally seen and examined this patient.: Yes I have fully participated in the care of the patient.: Yes I have reviewed all pertinent clinical information: Yes
--- NOTE | 2017-03-14 10:39 | CARD ---
APPROVED REPORT EKG Measurement Heart [id number] <Conclusion> Normal sinus rhythm Right atrial enlargement Right bundle branch block No change
[2017-03-14] MEDS: levETIRAcetam 500mg IVPB 500 MG/100 ML BAG IVPB SCH ×2 (10:48→21:30)
--- NOTE | 2017-03-14 12:17 | CP.PCM.CON ---
History of Present Illness - History of Present Illness History of Present Illness: Palliative services consulted by Dr Justa Martin Reason: Gaols of care/hospice discussion 81 year old female who was sent from [facility] with altered mental status. Family stated that change in mental status noted 24 hours earlier. Patient presented with new left facial droop and altered mental status. CT scan showed hypodense hemorrhage within the right frontal parietal lobe. New acute subarachnoid hemorrhage is seen in the right posterior frontal lobe, new acute intraventricular hemorrhage, hypodense edema adjacent to the areas of parenchymal hemorrhage. There is a midline shift to the left of approximately 6mm, which is progression. The patient was recently treated for an acute intracranial hemorrhage within the right frontal parietal lobe and parenchymal hemorrhage in right parietal region in February. She was subsequently transferred to [facility]. PMHx: HTN, HLD, RA, CVA, left hemiparesis. Social History: Former smoker, no alcohol or drug use. Lives with daughter Elida Gill. Family History: Non contributory. Advance Care Planning: The patient is DNR/DNI. Review of Systems: As per HPI,all other systems negative. Past Patient History - Tetanus Immunizations Tetanus Immunization: Unknown - Past Medical History & Family History Past Medical History?: Yes - Past Social History Smoking Status: Never Smoked Alcohol: None Drugs: Denies Home Situation {Lives}: Shelter - CARDIAC Hx Hypertension: Yes - PULMONARY Hx Respiratory Disorders: No - NEUROLOGICAL HX Cerebrovascular Accident: Yes - HEENT Hx HEENT Problems: No - RENAL Hx Chronic Kidney Disease: No - ENDOCRINE/METABOLIC Hx Endocrine Disorders: No - HEMATOLOGICAL/ONCOLOGICAL Hx Blood Disorders: No - INTEGUMENTARY Hx Dermatological Problems: No - MUSCULOSKELETAL/RHEUMATOLOGICAL Hx Rheumatoid Arthritis: Yes - GASTROINTESTINAL Hx Gastrointestinal Disorders: No - GENITOURINARY/GYNECOLOGICAL Hx Genitourinary Disorders: No - PSYCHIATRIC Hx Psychophysiologic Disorder: No Hx Substance Use: No - SURGICAL HISTORY Hx Cholecystectomy: Yes Meds Allergies/Adverse Reactions: Allergies Allergy/AdvReac Type Severity Reaction Status Date / Time No Known Allergies Allergy Verified 02/16/17 12:12 - Medications Medications: Current Medications Acetaminophen (Tylenol 650 Mg Supp) 650 mg RC Q6H PRN PRN Reason: Fever >100.4 F Levetiracetam (Keppra 500mg Ivpb) 500 mg in 100 mls @ 420 mls/hr IVPB Q12 [facility] Last Admin: 03/14/17 10:48 Dose: 420 mls/hr Potassium Chloride 10 meq/ (Dextrose/Sodium Chloride) 1,005 mls @ 50 mls/hr IV .Q20H6M [facility] Physical Exam - Constitutional Appears: No Acute Distress, Cachectic, Chronically Ill - Head Exam Head Exam: NORMAL INSPECTION - Eye Exam Eye Exam: Normal appearance, PERRL - ENT Exam Additional comments: left facial droop - Neck Exam Neck exam: Positive for: Normal Inspection - Respiratory Exam Respiratory Exam: Decreased Breath Sounds, NORMAL BREATHING PATTERN - Cardiovascular Exam Cardiovascular Exam: REGULAR RHYTHM, +S1, +S2 - GI/Abdominal Exam GI & Abdominal Exam: Diminished Bowel Sounds, Soft - Extremities Exam Extremities exam: Positive for: pedal pulses present - Back Exam Back exam: NORMAL INSPECTION - Neurological Exam Additional comments: lethargic - Skin Skin Exam: Dry, Warm Additional comments: sacral decubiti - Additional Findings Additional findings: Palliative performance scale rating 20 % Results - Vital Signs Recent Vital Signs: Last Vital Signs Temp 97.7 F 03/14/17 08:46 Pulse 102 H 03/14/17 08:46 Resp 18 03/14/17 08:46 BP 133/90 03/14/17 08:46 Pulse Ox 97 03/14/17 08:46 - Labs Result Diagrams: 03/13/17 21:45 03/13/17 21:45 Assessment & Plan - Assessment and Plan (Free Text) Assessment: 81 year old [place] female admitted with acute intracranial hemorrhage with right midline shift. History of recent CVA, left hemiparesis, HTN. The patient is lethargic, but rousable. She was brittany to answer simple yes and no questions. Left facial droop, left hemiparesis noted. Patient denies pain I spoke with patient's son Jv who is a [employer] employee as well as patient's daughter, Elida. I explained that due to patient's severity of intracranial hemorrhage and poor functional status, she is likely not a candidate for rehab. Options for comfort care discussed. Hospice services explained in detail. Family weighing whether to transition to home hospice or to transfer to a free standing hospice facility. Each of these types of hospice services were explained in detail and all questions were answered. Psychosocial support given. Time spent in discussion with family regarding goals of care and end of life services, 30 minutes Plan: Continue current medical management. Will assist with advance care planning
[2017-03-14] MEDS: Potassium Chloride 10 MEQ in Dextrose 5%/0.45% NS 1,000 ML IV SCH (13:42)
--- NOTE | 2017-03-14 16:06 | CP.PCM.HP ---
History of Present Illness - History of Present Illness History of Present Illness: 81 yo female h/o HTN, CVA presends with recurrent R frontal SAH, admitted to med /surg. Per NSGY no surgical intervention. On [facility] per neuro consult Dr. June for sz prophylaxis Present on Admission - Present on Admission Any Indicators Present on Admission: No History of DVT/PE: No History of Uncontrolled Diabetes: No Urinary Catheter: No Decubitus Ulcer Present: No Past Patient History - Tetanus Immunizations Tetanus Immunization: Unknown - Past Medical History & Family History Past Medical History?: Yes - Past Social History Smoking Status: Never Smoked Alcohol: None Drugs: Denies Home Situation {Lives}: Long-Term - CARDIAC Hx Hypertension: Yes - PULMONARY Hx Respiratory Disorders: No - NEUROLOGICAL HX Cerebrovascular Accident: Yes (L mellisa) - HEENT Hx HEENT Problems: No - RENAL Hx Chronic Kidney Disease: No - ENDOCRINE/METABOLIC Hx Endocrine Disorders: No - HEMATOLOGICAL/ONCOLOGICAL Hx Blood Disorders: No - INTEGUMENTARY Hx Dermatological Problems: No - MUSCULOSKELETAL/RHEUMATOLOGICAL Hx Rheumatoid Arthritis: Yes - GASTROINTESTINAL Hx Gastrointestinal Disorders: No - GENITOURINARY/GYNECOLOGICAL Hx Genitourinary Disorders: No - PSYCHIATRIC Hx Psychophysiologic Disorder: No Hx Substance Use: No - SURGICAL HISTORY Hx Cholecystectomy: Yes Meds Allergies/Adverse Reactions: Allergies Allergy/AdvReac Type Severity Reaction Status Date / Time No Known Allergies Allergy Verified 02/16/17 12:12 Physical Exam - Constitutional Appears: Chronically Ill - Head Exam Head Exam: ATRAUMATIC - Neurological Exam Neurological exam: Altered Results - Vital Signs Recent Vital Signs: Last Vital Signs Temp 97.7 F 03/14/17 08:46 Pulse 102 H 03/14/17 08:46 Resp 18 03/14/17 08:46 BP 133/90 03/14/17 08:46 Pulse Ox 97 03/14/17 08:46 - Labs Result Diagrams: 03/13/17 21:45 03/13/17 21:45
[2017-03-15] MEDS: Potassium Chloride 10 MEQ in Dextrose 5%/0.45% NS 1,000 ML IV SCH (08:25)
[2017-03-15] MEDS: levETIRAcetam 500mg IVPB 500 MG/100 ML BAG IVPB SCH ×2 (10:07→21:38)
--- NOTE | 2017-03-15 10:39 | CP.PCM.PN ---
Subjective - Date & Time of Evaluation Date of Evaluation: 03/15/17 Time of Evaluation: 10:00 - Subjective Subjective: No acute distress, remains somewhat lethargic, responds appropriately to verbal commands Objective - Vital Signs/Intake and Output Vital Signs (last 24 hours): Temp Pulse Resp BP Pulse Ox 97.6 F 98 H 18 144/95 H 81 L 03/15/17 06:00 03/15/17 06:00 03/15/17 06:00 03/14/17 16:00 03/15/17 06:00 Intake and Output: 03/15/17 03/15/17 06:59 18:59 Intake Total 0 Output Total 400 300 Balance -400 -300 - Medications Medications: Current Medications Acetaminophen (Tylenol 650 Mg Supp) 650 mg RC Q6H PRN PRN Reason: Fever >100.4 F Last Admin: 03/14/17 22:32 Dose: 650 mg Levetiracetam (Keppra 500mg Ivpb) 500 mg in 100 mls @ 420 mls/hr IVPB Q12 [facility] Last Admin: 03/15/17 10:07 Dose: 420 mls/hr Potassium Chloride 10 meq/ (Dextrose/Sodium Chloride) 1,005 mls @ 50 mls/hr IV .Q20H6M [facility] Last Admin: 03/15/17 08:25 Dose: 50 mls/hr - Labs Labs: PT 10.3 Seconds (9.9-11.8) 03/13/17 21:45 INR 0.95 (0.93-1.08) 03/13/17 21:45 APTT 26.6 Seconds (23.7-30.8) 03/13/17 21:45 - Neurological Exam Neuro motor strength exam: Left Upper Extremity: 4, Left Lower Extremity: 2/1, Right Lower Extremity: 4
--- NOTE | 2017-03-15 13:59 | CP.PCM.PN ---
Subjective - Date & Time of Evaluation Date of Evaluation: 03/15/17 Time of Evaluation: 09:00 - Subjective Subjective: NEURO PROGRESS NOTE: 03/15/17 Reason for consult: AMS. SUBJECTIVE: PATIENT IS MORE AWAKING, RESPOND TO SOME SIMPLE COMMANDS. DISCUSSED WITH FAMILY AT BEDSIDE. PMH: HTN, RA, and HLD PSH: cholecystectomy Social: no tobacco, alcohol or illicit drug use history. Allergy: NKDA Home meds: please see EMR. Review of Systems - Review of Systems Systems not reviewed;Unavailable: Altered Mental Status Past Patient History - Tetanus Immunizations Tetanus Immunization: Unknown - Past Medical History & Family History Past Medical History?: Yes - Past Social History Smoking Status: Never Smoked Alcohol: None Drugs: Denies Home Situation {Lives}: [facility] - CARDIAC Hx Hypertension: Yes - PULMONARY Hx Respiratory Disorders: No - NEUROLOGICAL HX Cerebrovascular Accident: Yes - HEENT Hx HEENT Problems: No - RENAL Hx Chronic Kidney Disease: No - ENDOCRINE/METABOLIC Hx Endocrine Disorders: No - HEMATOLOGICAL/ONCOLOGICAL Hx Blood Disorders: No - INTEGUMENTARY Hx Dermatological Problems: No - MUSCULOSKELETAL/RHEUMATOLOGICAL Hx Rheumatoid Arthritis: Yes - GASTROINTESTINAL Hx Gastrointestinal Disorders: No - GENITOURINARY/GYNECOLOGICAL Hx Genitourinary Disorders: No - PSYCHIATRIC Hx Psychophysiologic Disorder: No Hx Substance Use: No - SURGICAL HISTORY Hx Cholecystectomy: Yes Meds Allergies/Adverse Reactions: Allergies Allergy/AdvReac Type Severity Reaction Status Date / Time No Known Allergies Allergy Verified 02/16/17 12:12 - Medications Medications: Current Medications Levetiracetam (Keppra 500mg Ivpb) 500 mg in 100 mls @ 420 mls/hr IVPB Q12 [facility] Physical Exam - Constitutional Appears: No Acute Distress, Older Than Stated Age, Confused, Cachectic, Chronically Ill - Head Exam Head Exam: ATRAUMATIC, NORMAL INSPECTION, NORMOCEPHALIC - Respiratory Exam Respiratory Exam: Clear to Auscultation Bilateral, NORMAL BREATHING PATTERN. absent: Rhonchi, Wheezes, Respiratory Distress - Cardiovascular Exam Cardiovascular Exam: Tachycardia, REGULAR RHYTHM, +S1, +S2 - GI/Abdominal Exam GI & Abdominal Exam: Normal Bowel Sounds, Soft. absent: Distended, Tenderness - Neurological Exam Additional comments: Neuro- Patient is drowsy, not alert to person and time. Alert to place. In no acute distress. Cranial nerves: Pupils reactive to light, Right lateral gaze on the right side, pupils are reactive, + left sided mild facial droop, tongue is midline, no atrophy, patient is unable to smile. patient responds to some verbal commands. Motor: decreased tone on the left side, left UE and LLE are protracted, unable to extend the upper left extremity, 2/5 left upper and lower extremities weakness, 4/5 right upper and lower extremities weakness for both flexion and extension, contracted b/l wrist flexors. upward going toes bilaterally. Reflexes are brisk throughout. Sensory: light touch intact, proprioception intact, withdraws to pain, Assessment & Plan Assessment: Patient is an 81 y/o with PMH of htn, hld, who presented with worsening AMS and was found to have worsening hyperdense hemorrhage within the right frontal parietal lobes likely a re-bleed, new acute subarachnoid hemorrhage in the right posterior frontal lobe, new acute intravascular hemorrhage and 6 mm midline shift resulting in worsening mental status, worsening right sided hemiparesis, and dysarthria. Plan: - Continue keppra 500 mg IV bid for seizure prophylaxis. - Keep SBP between 120-130 -Thiamine 100mg po q8. - Monitor electrolytes and correct accordingly - Follow up with neurosurgery recommendations. -Supportive measures. Objective - Vital Signs/Intake and Output Vital Signs (last 24 hours): Temp Pulse Resp BP Pulse Ox 97.6 F 98 H 18 144/95 H 81 L 03/15/17 06:00 03/15/17 06:00 03/15/17 06:00 03/14/17 16:00 03/15/17 06:00 Intake and Output: 03/15/17 03/15/17 06:59 18:59 Intake Total 0 Output Total 400 300 Balance -400 -300 - Medications Medications: Current Medications Acetaminophen (Tylenol 650 Mg Supp) 650 mg RC Q6H PRN PRN Reason: Fever >100.4 F Last Admin: 03/14/17 22:32 Dose: 650 mg Levetiracetam (Keppra 500mg Ivpb) 500 mg in 100 mls @ 420 mls/hr IVPB Q12 [facility] Last Admin: 03/15/17 10:07 Dose: 420 mls/hr Potassium Chloride 10 meq/ (Dextrose/Sodium Chloride) 1,005 mls @ 50 mls/hr IV .Q20H6M [facility] Last Admin: 03/15/17 08:25 Dose: 50 mls/hr Thiamine HCl (Vitamin B1 Inj) 100 mg IM DAILY [facility] - Labs Labs: PT 10.3 Seconds (9.9-11.8) 03/13/17 21:45 INR 0.95 (0.93-1.08) 03/13/17 21:45 APTT 26.6 Seconds (23.7-30.8) 03/13/17 21:45
[2017-03-16] MEDS: Potassium Chloride 10 MEQ in Dextrose 5%/0.45% NS 1,000 ML IV SCH ×2 (02:51→23:35)
[2017-03-16] MEDS: levETIRAcetam 500mg IVPB 500 MG/100 ML BAG IVPB SCH ×2 (10:24→21:20)
[2017-03-16] MEDS: Thiamine 100 mg/ml Inj IM SCH (10:28)
[2017-03-16] MEDS ORDERED: Nitroglycerin 2% Ointment Foilpak UD TOP PRN ×2 (11:01→11:02)
--- NOTE | 2017-03-16 11:15 | CP.PCM.PN ---
Subjective - Date & Time of Evaluation Date of Evaluation: 03/16/17 Time of Evaluation: 11:00 - Subjective Subjective: more responsive this am Objective - Vital Signs/Intake and Output Vital Signs (last 24 hours): Temp Pulse Resp BP Pulse Ox 101.2 F H 92 H 18 165/90 H 100 03/16/17 10:25 03/16/17 06:00 03/16/17 06:00 03/16/17 06:00 03/16/17 06:00 Intake and Output: 03/16/17 03/16/17 06:59 18:59 Intake Total 700 Output Total 900 Balance -200 - Medications Medications: Current Medications Acetaminophen (Tylenol 650 Mg Supp) 650 mg RC Q6H PRN PRN Reason: Fever >100.4 F Last Admin: 03/15/17 16:26 Dose: 650 mg Acetaminophen (Tylenol 650 Mg Supp) 650 mg RC Q4H PRN PRN Reason: Fever >100.4 F Last Admin: 03/16/17 10:25 Dose: 650 mg Levetiracetam (Keppra 500mg Ivpb) 500 mg in 100 mls @ 420 mls/hr IVPB Q12 [facility] Last Admin: 03/16/17 10:24 Dose: 420 mls/hr Potassium Chloride 10 meq/ (Dextrose/Sodium Chloride) 1,005 mls @ 50 mls/hr IV .Q20H6M [facility] Last Admin: 03/16/17 02:51 Dose: 50 mls/hr Nitroglycerin (Nitro-Bid 2% Oint) 1 ea TOP Q6 PRN PRN Reason: Systolic Blood Pressure Thiamine HCl (Vitamin B1 Inj) 100 mg IM DAILY [facility] Last Admin: 03/16/17 10:28 Dose: 100 mg - Labs Labs: PT 10.3 Seconds (9.9-11.8) 03/13/17 21:45 INR 0.95 (0.93-1.08) 03/13/17 21:45 APTT 26.6 Seconds (23.7-30.8) 03/13/17 21:45 Assessment and Plan (1) Fever Status: Acute - Assessment and Plan (Free Text) Assessment: r/o UTI, sepsis Plan: empric abx, rocephin 1g IV q24, obtain urine/blood c&s, CXR, check labs in am, speech eval for swallowin
--- NOTE | 2017-03-16 11:43 | RAD ---
HISTORY: pain COMPARISON: 03/13/2017 FINDINGS: LUNGS: No active pulmonary disease. PLEURA: No significant pleural effusion identified, no pneumothorax apparent. CARDIOVASCULAR: Normal. OSSEOUS STRUCTURES: No significant abnormalities. VISUALIZED UPPER ABDOMEN: Normal. OTHER FINDINGS: None. IMPRESSION: No active disease.
[2017-03-16] MEDS: cefTRIAXone 1 gm 1 GM/100 ML BAG IVPB SCH (12:21)
[2017-03-16] MEDS: Nystatin 100,000 Units/gm Topical Pow(15 gm) TOP SCH (20:45)
[2017-03-17 07:23] LABS: BASO # 0.02 K/mm3 (0.0-2.0); BASO % 0.3 % (0.0-3.0); EOS % 0.3 % (1.5-5.0); GRAN # 5.51 (1.4-6.5); HEMOGLOBIN 10.1 gm/dL (12.0-16.0); LYMPH # 1.1 (1.2-3.4); LYMPH % 15.7 % (22.0-35.0); MEAN CELL VOLUME 89.7 fL (80.0-105.0); MEAN CORPUSCULAR HEMOGLOBIN 28.9 pg (25.0-35.0); MEAN CORPUSCULAR HGB CONC 32.2 g/dl (31.0-37.0); MEAN PLATELET VOLUME 8.7 fl (7.0-11.0); MONO # 0.6 (0.1-0.6); MONO % 7.7 % (1.0-6.0); PLATELET COUNT 213 10^3/uL (120.0-450.0); RED CELL DISTRIBUTION WIDTH 13.8 % (11.5-14.5); WHITE BLOOD COUNT 7.3 10^3/ul (4.5-11.0)
[2017-03-17 07:38] LABS: ALBUMIN 3.2 g/dL (3.0-4.8); ALT/SGPT 23 U/L (7-56); AST/SGOT 30 U/L (15-39); BLOOD UREA NITROGEN 23 mg/dL (7-21); CALCIUM 8.8 mg/dL (8.4-10.5); GFR AFRICAN-AMERICAN > 60; GFR NON-AFRICAN AMERICAN > 60
[2017-03-17] MEDS: cefTRIAXone 1 gm 1 GM/100 ML BAG IVPB SCH (09:30)
[2017-03-17] MEDS: levETIRAcetam 500mg IVPB 500 MG/100 ML BAG IVPB SCH ×2 (09:31→22:44)
[2017-03-17] MEDS: Thiamine 100 mg/ml Inj IM SCH (09:31)
[2017-03-17] MEDS: Nystatin 100,000 Units/gm Topical Pow(15 gm) TOP SCH ×2 (09:45→17:27)
--- NOTE | 2017-03-17 10:03 | CP.PCM.PN ---
Subjective - Date & Time of Evaluation Date of Evaluation: 03/17/17 Time of Evaluation: 10:00 - Subjective Subjective: Lethargic. Able to answer simple questions. Denies pain. Objective - Vital Signs/Intake and Output Vital Signs (last 24 hours): Temp Pulse Resp BP Pulse Ox 99.3 F 80 18 152/86 H 100 03/17/17 08:46 03/17/17 09:31 03/17/17 08:46 03/17/17 09:31 03/17/17 08:46 Intake and Output: 03/17/17 03/17/17 06:59 18:59 Intake Total 950 Output Total 300 Balance 650 - Medications Medications: Current Medications Acetaminophen (Tylenol 650 Mg Supp) 650 mg RC Q6H PRN PRN Reason: Fever >100.4 F Last Admin: 03/15/17 16:26 Dose: 650 mg Acetaminophen (Tylenol 650 Mg Supp) 650 mg RC Q4H PRN PRN Reason: Fever >100.4 F Last Admin: 03/16/17 23:59 Dose: 650 mg Clonidine HCl (Catapres) 0.1 mg PO BID [facility] Last Admin: 03/17/17 09:31 Dose: 0.1 mg Levetiracetam (Keppra 500mg Ivpb) 500 mg in 100 mls @ 420 mls/hr IVPB Q12 [facility] Last Admin: 03/17/17 09:31 Dose: 420 mls/hr Potassium Chloride 10 meq/ (Dextrose/Sodium Chloride) 1,005 mls @ 50 mls/hr IV .Q20H6M [facility] Last Admin: 03/16/17 23:35 Dose: 50 mls/hr Ceftriaxone Sodium (Rocephin 1 Gram Ivpb) 1 gm in 100 mls @ 100 mls/hr IVPB DAILY [facility] PRN Reason: Protocol Last Admin: 03/17/17 09:30 Dose: 100 mls/hr Nitroglycerin (Nitro-Bid 2% Oint) 1 ea TOP Q6 PRN PRN Reason: Systolic Blood Pressure Last Admin: 03/16/17 12:21 Dose: 1 ea Nitroglycerin (Nitro-Bid 2% Oint) 0 ea TOP Q6 PRN PRN Reason: Systolic Blood Pressure Nystatin (Nystop Topical Powder) 0 gm TOP BID [facility] Last Admin: 03/17/17 09:45 Dose: 1 appl Thiamine HCl (Vitamin B1 Inj) 100 mg IM DAILY [facility] Last Admin: 03/17/17 09:31 Dose: 100 mg - Labs Labs: 03/17/17 06:40 03/17/17 06:40 PT 10.3 Seconds (9.9-11.8) 03/13/17 21:45 INR 0.95 (0.93-1.08) 03/13/17 21:45 APTT 26.6 Seconds (23.7-30.8) 03/13/17 21:45 - Constitutional Appears: Cachectic, Chronically Ill - Head Exam Head Exam: NORMAL INSPECTION, NORMOCEPHALIC Additional comments: left facial droop - Eye Exam Eye Exam: Normal appearance, PERRL - ENT Exam ENT Exam: Mucous Membranes Moist, Normal Oropharynx - Neck Exam Neck Exam: Normal Inspection - Respiratory Exam Respiratory Exam: Clear to Ausculation Bilateral, NORMAL BREATHING PATTERN - Cardiovascular Exam Cardiovascular Exam: REGULAR RHYTHM, +S1, +S2 - GI/Abdominal Exam GI & Abdominal Exam: Soft, Diminished Bowel Sounds - Extremities Exam Additional comments: left hemiparesis - Neurological Exam Neurological Exam: Alert - Skin Skin Exam: Dry Assessment and Plan - Assessment and Plan (Free Text) Assessment: 81 year old female with history of CVA 3 weeks ago who presented with AMS, acute extension of frontal parietal hemorrhage with right midline shift, new acute subarachnoid hemorrhage. The patient is lethargic. Able to answer simple questions. She is bed bound, incontinent.Speech and swallow exam showed severe oropharyngeal dysphagia, recommendations of thickened liquids. Exam scheduled to be repeated today. Family has been considering hospice care. They were given a detailed explanation of hospice services on Friday. All questions answered. Family scheduled to meet with [facility] liaison officer today. Plan: Hospice referral Advance Care Planning
[2017-03-17] MEDS ORDERED: Potassium Chloride 20 mEq ER Tab PO ONE (10:11)
--- NOTE | 2017-03-17 13:12 | CP.PCM.PN ---
Subjective - Date & Time of Evaluation Date of Evaluation: 03/17/17 Time of Evaluation: 10:00 - Subjective Subjective: Subjective NEURO PROGRESS NOTE: 03/15/17 Reason for consult: AMS. SUBJECTIVE: PATIENT IS MORE AWAKING, RESPOND TO SOME SIMPLE COMMANDS. DISCUSSED WITH FAMILY AT BEDSIDE. Palliative follow up appreciate. No acute events overnight. PMH: HTN, RA, and HLD PSH: cholecystectomy Social: no tobacco, alcohol or illicit drug use history. Allergy: NKDA Home meds: please see EMR. Review of Systems - Review of Systems Systems not reviewed;Unavailable: Altered Mental Status Past Patient History - Tetanus Immunizations Tetanus Immunization: Unknown - Past Medical History & Family History Past Medical History?: Yes - Past Social History Smoking Status: Never Smoked Alcohol: None Drugs: Denies Home Situation {Lives}: [facility] - CARDIAC Hx Hypertension: Yes - PULMONARY Hx Respiratory Disorders: No - NEUROLOGICAL HX Cerebrovascular Accident: Yes - HEENT Hx HEENT Problems: No - RENAL Hx Chronic Kidney Disease: No - ENDOCRINE/METABOLIC Hx Endocrine Disorders: No - HEMATOLOGICAL/ONCOLOGICAL Hx Blood Disorders: No - INTEGUMENTARY Hx Dermatological Problems: No - MUSCULOSKELETAL/RHEUMATOLOGICAL Hx Rheumatoid Arthritis: Yes - GASTROINTESTINAL Hx Gastrointestinal Disorders: No - GENITOURINARY/GYNECOLOGICAL Hx Genitourinary Disorders: No - PSYCHIATRIC Hx Psychophysiologic Disorder: No Hx Substance Use: No - SURGICAL HISTORY Hx Cholecystectomy: Yes Meds Allergies/Adverse Reactions: Allergies Allergy/AdvReac Type Severity Reaction Status Date / Time No Known Allergies Allergy Verified 02/16/17 12:12 - Medications Medications: Current Medications Levetiracetam (Keppra 500mg Ivpb) 500 mg in 100 mls @ 420 mls/hr IVPB Q12 [facility] Physical Exam - Constitutional Appears: No Acute Distress, Older Than Stated Age, Confused, Cachectic, Chronically Ill - Head Exam Head Exam: ATRAUMATIC, NORMAL INSPECTION, NORMOCEPHALIC - Respiratory Exam Respiratory Exam: Clear to Auscultation Bilateral, NORMAL BREATHING PATTERN. absent: Rhonchi, Wheezes, Respiratory Distress - Cardiovascular Exam Cardiovascular Exam: Tachycardia, REGULAR RHYTHM, +S1, +S2 - GI/Abdominal Exam GI & Abdominal Exam: Normal Bowel Sounds, Soft. absent: Distended, Tenderness - Neurological Exam Additional comments: Neuro- Patient is drowsy, not alert to person and time. Alert to place. In no acute distress. Cranial nerves: Pupils reactive to light, Right lateral gaze on the right side, pupils are reactive, + left sided mild facial droop, tongue is midline, no atrophy, patient is unable to smile. patient responds to some verbal commands. Motor: decreased tone on the left side, left UE and LLE are protracted, unable to extend the upper left extremity, 2/5 left upper and lower extremities weakness, 4/5 right upper and lower extremities weakness for both flexion and extension, contracted b/l wrist flexors. upward going toes bilaterally. Reflexes are brisk throughout. Sensory: light touch intact, proprioception intact, withdraws to pain, Assessment & Plan Assessment: Patient is an 81 y/o with PMH of htn, hld, who presented with worsening AMS and was found to have worsening hyperdense hemorrhage within the right frontal parietal lobes likely a re-bleed, new acute subarachnoid hemorrhage in the right posterior frontal lobe, new acute intravascular hemorrhage and 6 mm midline shift resulting in worsening mental status, worsening right sided hemiparesis, and dysarthria. Plan: - Continue keppra 500 mg IV bid for seizure prophylaxis. - Keep SBP between 120-130 -Thiamine 100mg po q8. - Monitor electrolytes and correct accordingly - Follow up with neurosurgery recommendations. -Supportive measures. Objective - Vital Signs/Intake and Output Vital Signs (last 24 hours): Temp Pulse Resp BP Pulse Ox 99.3 F 80 18 152/86 H 100 03/17/17 08:46 03/17/17 09:31 03/17/17 08:46 03/17/17 09:31 03/17/17 08:46 Intake and Output: 03/17/17 03/17/17 06:59 18:59 Intake Total 950 Output Total 300 Balance 650 - Medications Medications: Current Medications Acetaminophen (Tylenol 650 Mg Supp) 650 mg RC Q6H PRN PRN Reason: Fever >100.4 F Last Admin: 03/15/17 16:26 Dose: 650 mg Acetaminophen (Tylenol 650 Mg Supp) 650 mg RC Q4H PRN PRN Reason: Fever >100.4 F Last Admin: 03/16/17 23:59 Dose: 650 mg Clonidine HCl (Catapres) 0.1 mg PO BID [facility] Last Admin: 03/17/17 09:31 Dose: 0.1 mg Levetiracetam (Keppra 500mg Ivpb) 500 mg in 100 mls @ 420 mls/hr IVPB Q12 [facility] Last Admin: 03/17/17 09:31 Dose: 420 mls/hr Potassium Chloride 10 meq/ (Dextrose/Sodium Chloride) 1,005 mls @ 50 mls/hr IV .Q20H6M [facility] Last Admin: 03/16/17 23:35 Dose: 50 mls/hr Ceftriaxone Sodium (Rocephin 1 Gram Ivpb) 1 gm in 100 mls @ 100 mls/hr IVPB DAILY [facility] PRN Reason: Protocol Last Admin: 03/17/17 09:30 Dose: 100 mls/hr Nitroglycerin (Nitro-Bid 2% Oint) 1 ea TOP Q6 PRN PRN Reason: Systolic Blood Pressure Last Admin: 03/16/17 12:21 Dose: 1 ea Nitroglycerin (Nitro-Bid 2% Oint) 0 ea TOP Q6 PRN PRN Reason: Systolic Blood Pressure Nystatin (Nystop Topical Powder) 0 gm TOP BID [facility] Last Admin: 03/17/17 09:45 Dose: 1 appl Thiamine HCl (Vitamin B1 Inj) 100 mg IM DAILY [facility] Last Admin: 03/17/17 09:31 Dose: 100 mg - Labs Labs: 03/17/17 06:40 03/17/17 06:40 PT 10.3 Seconds (9.9-11.8) 03/13/17 21:45 INR 0.95 (0.93-1.08) 03/13/17 21:45 APTT 26.6 Seconds (23.7-30.8) 03/13/17 21:45
--- NOTE | 2017-03-17 16:35 | CP.PCM.PN ---
Subjective - Date & Time of Evaluation Date of Evaluation: 03/17/17 Time of Evaluation: 14:00 - Subjective Subjective: more responsive today, otherwise nad Objective - Vital Signs/Intake and Output Vital Signs (last 24 hours): Temp Pulse Resp BP Pulse Ox 99.3 F 80 18 152/86 H 100 03/17/17 08:46 03/17/17 09:31 03/17/17 08:46 03/17/17 09:31 03/17/17 08:46 Intake and Output: 03/17/17 03/17/17 06:59 18:59 Intake Total 950 240 Output Total 300 600 Balance 650 -360 - Medications Medications: Current Medications Acetaminophen (Tylenol 650 Mg Supp) 650 mg RC Q6H PRN PRN Reason: Fever >100.4 F Last Admin: 03/15/17 16:26 Dose: 650 mg Acetaminophen (Tylenol 650 Mg Supp) 650 mg RC Q4H PRN PRN Reason: Fever >100.4 F Last Admin: 03/16/17 23:59 Dose: 650 mg Clonidine HCl (Catapres) 0.1 mg PO BID [facility] Last Admin: 03/17/17 09:31 Dose: 0.1 mg Levetiracetam (Keppra 500mg Ivpb) 500 mg in 100 mls @ 420 mls/hr IVPB Q12 [facility] Last Admin: 03/17/17 09:31 Dose: 420 mls/hr Potassium Chloride 10 meq/ (Dextrose/Sodium Chloride) 1,005 mls @ 50 mls/hr IV .Q20H6M [facility] Last Admin: 03/16/17 23:35 Dose: 50 mls/hr Ceftriaxone Sodium (Rocephin 1 Gram Ivpb) 1 gm in 100 mls @ 100 mls/hr IVPB DAILY [facility] PRN Reason: Protocol Last Admin: 03/17/17 09:30 Dose: 100 mls/hr Nitroglycerin (Nitro-Bid 2% Oint) 1 ea TOP Q6 PRN PRN Reason: Systolic Blood Pressure Last Admin: 03/16/17 12:21 Dose: 1 ea Nitroglycerin (Nitro-Bid 2% Oint) 0 ea TOP Q6 PRN PRN Reason: Systolic Blood Pressure Nystatin (Nystop Topical Powder) 0 gm TOP BID [facility] Last Admin: 03/17/17 09:45 Dose: 1 appl Thiamine HCl (Vitamin B1 Inj) 100 mg IM DAILY [facility] Last Admin: 03/17/17 09:31 Dose: 100 mg - Labs Labs: 03/17/17 06:40 03/17/17 06:40 PT 10.3 Seconds (9.9-11.8) 03/13/17 21:45 INR 0.95 (0.93-1.08) 03/13/17 21:45 APTT 26.6 Seconds (23.7-30.8) 03/13/17 21:45 Assessment and Plan (1) Fever Status: Acute (2) Subarachnoid bleed Status: Acute (3) Hypokalemia Status: Acute - Assessment and Plan (Free Text) Plan: PT eval, SW for d/c planning, potassium supplement, monitor lytes
--- NOTE | 2017-03-17 17:12 | CP.PCM.PN ---
<Suze Nunez - Last Filed: 03/17/17 18:54> Subjective - Date & Time of Evaluation Date of Evaluation: 03/17/17 Time of Evaluation: 09:00 - Subjective Subjective: PGY-2 Neurology progress note for Dr June. Patient is more awake, and following simple commands. Language still somewhat limited. Objective - Vital Signs/Intake and Output Vital Signs (last 24 hours): Temp Pulse Resp BP Pulse Ox 99.3 F 80 18 152/86 H 100 03/17/17 08:46 03/17/17 09:31 03/17/17 08:46 03/17/17 09:31 03/17/17 08:46 Intake and Output: 03/17/17 03/17/17 06:59 18:59 Intake Total 950 240 Output Total 300 600 Balance 650 -360 - Medications Medications: Current Medications Acetaminophen (Tylenol 650 Mg Supp) 650 mg RC Q6H PRN PRN Reason: Fever >100.4 F Last Admin: 03/15/17 16:26 Dose: 650 mg Acetaminophen (Tylenol 650 Mg Supp) 650 mg RC Q4H PRN PRN Reason: Fever >100.4 F Last Admin: 03/16/17 23:59 Dose: 650 mg Clonidine HCl (Catapres) 0.1 mg PO BID [facility] Last Admin: 03/17/17 09:31 Dose: 0.1 mg Levetiracetam (Keppra 500mg Ivpb) 500 mg in 100 mls @ 420 mls/hr IVPB Q12 [facility] Last Admin: 03/17/17 09:31 Dose: 420 mls/hr Potassium Chloride 10 meq/ (Dextrose/Sodium Chloride) 1,005 mls @ 50 mls/hr IV .Q20H6M [facility] Last Admin: 03/16/17 23:35 Dose: 50 mls/hr Ceftriaxone Sodium (Rocephin 1 Gram Ivpb) 1 gm in 100 mls @ 100 mls/hr IVPB DAILY [facility] PRN Reason: Protocol Last Admin: 03/17/17 09:30 Dose: 100 mls/hr Nitroglycerin (Nitro-Bid 2% Oint) 1 ea TOP Q6 PRN PRN Reason: Systolic Blood Pressure Last Admin: 03/16/17 12:21 Dose: 1 ea Nitroglycerin (Nitro-Bid 2% Oint) 0 ea TOP Q6 PRN PRN Reason: Systolic Blood Pressure Nystatin (Nystop Topical Powder) 0 gm TOP BID [facility] Last Admin: 03/17/17 09:45 Dose: 1 appl Thiamine HCl (Vitamin B1 Inj) 100 mg IM DAILY [facility] Last Admin: 03/17/17 09:31 Dose: 100 mg - Labs Labs: 03/17/17 06:40 03/17/17 06:40 PT 10.3 Seconds (9.9-11.8) 03/13/17 21:45 INR 0.95 (0.93-1.08) 03/13/17 21:45 APTT 26.6 Seconds (23.7-30.8) 03/13/17 21:45 - Constitutional Appears: No Acute Distress, Cachectic, Chronically Ill - Head Exam Head Exam: ATRAUMATIC, NORMAL INSPECTION, NORMOCEPHALIC - Eye Exam Eye Exam: EOMI, Normal appearance, PERRL - ENT Exam ENT Exam: Mucous Membranes Moist - Neck Exam Neck Exam: Full ROM, Normal Inspection - Respiratory Exam Respiratory Exam: Decreased Breath Sounds (at the bases.), NORMAL BREATHING PATTERN. absent: Rales, Rhonchi, Wheezes, Respiratory Distress, Stridor - Cardiovascular Exam Cardiovascular Exam: REGULAR RHYTHM, +S1, +S2 - GI/Abdominal Exam GI & Abdominal Exam: Soft, Normal Bowel Sounds. absent: Tenderness - Extremities Exam Extremities Exam: Normal Inspection. absent: Pedal Edema - Neurological Exam Neurological Exam: Alert, Awake. absent: Oriented x3 Additional comments: Neuro- Patient is drowsy, not alert to person and time. Alert to place. In no acute distress. Cranial nerves: Pupils reactive to light, Right lateral gaze on the right side, pupils are reactive, + left sided mild facial droop, tongue is midline, no atrophy, patient is unable to smile. patient responds to some verbal commands. Motor: decreased tone on the left side, left UE and LLE are protracted, unable to extend the upper left extremity, 2/5 left upper and lower extremities weakness, 4/5 right upper and lower extremities weakness for both flexion and extension, contracted b/l wrist flexors. upward going toes bilaterally. Reflexes are brisk throughout. Sensory: light touch intact, proprioception intact, withdraws to pain. - Psychiatric Exam Psychiatric exam: Normal Affect, Normal Mood - Skin Skin Exam: Dry, Warm Assessment and Plan - Assessment and Plan (Free Text) Assessment: Patient is an 81 y/o with PMH of htn, hld, who presented with worsening AMS and was found to have worsening hyperdense hemorrhage within the right frontal parietal lobes likely a re-bleed, new acute subarachnoid hemorrhage in the right posterior frontal lobe, new acute intravascular hemorrhage and 6 mm midline shift resulting in worsening mental status, worsening right sided hemiparesis, and dysarthria. Plan: - Family considering comfort care. - Continue keppra 500 mg IV bid for seizure prophylaxis. - Supportive measures. Patient seen, examined, discussed with Dr June. <Kumar June - Last Filed: 03/18/17 14:54> Objective - Vital Signs/Intake and Output Vital Signs (last 24 hours): Temp Pulse Resp BP Pulse Ox 98.6 F 76 18 142/70 100 03/18/17 09:13 03/18/17 10:26 03/18/17 09:13 03/18/17 10:26 03/18/17 09:13 Intake and Output: 03/18/17 03/18/17 06:59 18:59 Intake Total 980 360 Output Total 100 1425 Balance 880 -1065 - Medications Medications: Current Medications Acetaminophen (Tylenol 650 Mg Supp) 650 mg RC Q6H PRN PRN Reason: Fever >100.4 F Last Admin: 03/17/17 17:30 Dose: 650 mg Acetaminophen (Tylenol 650 Mg Supp) 650 mg RC Q4H PRN PRN Reason: Fever >100.4 F Last Admin: 03/16/17 23:59 Dose: 650 mg Clonidine HCl (Catapres) 0.1 mg PO BID [facility] Last Admin: 03/18/17 10:26 Dose: 0.1 mg Levetiracetam (Keppra 500mg Ivpb) 500 mg in 100 mls @ 420 mls/hr IVPB Q12 [facility] Last Admin: 03/18/17 10:21 Dose: 420 mls/hr Potassium Chloride 10 meq/ (Dextrose/Sodium Chloride) 1,005 mls @ 50 mls/hr IV .Q20H6M [facility] Last Admin: 03/17/17 20:00 Dose: 50 mls/hr Ceftriaxone Sodium (Rocephin 1 Gram Ivpb) 1 gm in 100 mls @ 100 mls/hr IVPB DAILY [facility] PRN Reason: Protocol Last Admin: 03/18/17 10:26 Dose: 100 mls/hr Nitroglycerin (Nitro-Bid 2% Oint) 1 ea TOP Q6 PRN PRN Reason: Systolic Blood Pressure Last Admin: 03/16/17 12:21 Dose: 1 ea Nitroglycerin (Nitro-Bid 2% Oint) 0 ea TOP Q6 PRN PRN Reason: Systolic Blood Pressure Nystatin (Nystop Topical Powder) 0 gm TOP BID [facility] Last Admin: 03/18/17 10:28 Dose: 1 appl Thiamine HCl (Vitamin B1 Inj) 100 mg IM DAILY [facility] Last Admin: 03/18/17 10:26 Dose: 100 mg - Labs Labs: 03/17/17 06:40 03/18/17 11:00 PT 10.3 Seconds (9.9-11.8) 03/13/17 21:45 INR 0.95 (0.93-1.08) 03/13/17 21:45 APTT 26.6 Seconds (23.7-30.8) 03/13/17 21:45 Attending/Attestation - Attestation I have personally seen and examined this patient.: Yes I have fully participated in the care of the patient.: Yes I have reviewed all pertinent clinical information, including history, physical exam and plan: Yes
[2017-03-17] MEDS: Potassium Chloride 10 MEQ in Dextrose 5%/0.45% NS 1,000 ML IV SCH (20:00)
[2017-03-18 08:40] LABS: ALB/GLOB RATIO 0.9 (1.1-1.8); ALBUMIN 3.1 g/dL (3.0-4.8); ALT/SGPT 28 U/L (7-56); AST/SGOT 35 U/L (15-39); BLOOD UREA NITROGEN 19 mg/dL (7-21); CALCIUM 8.8 mg/dL (8.4-10.5); GFR AFRICAN-AMERICAN > 60; GFR NON-AFRICAN AMERICAN > 60
[2017-03-18] MEDS: levETIRAcetam 500mg IVPB 500 MG/100 ML BAG IVPB SCH (10:21)
[2017-03-18] MEDS: Thiamine 100 mg/ml Inj IM SCH (10:26)
[2017-03-18] MEDS: cefTRIAXone 1 gm 1 GM/100 ML BAG IVPB SCH (10:26)
[2017-03-18] MEDS: Nystatin 100,000 Units/gm Topical Pow(15 gm) TOP SCH ×2 (10:28→17:21)
[2017-03-18 11:29] LABS: BLOOD UREA NITROGEN 17 mg/dL (7-21); CALCIUM 8.7 mg/dL (8.4-10.5); GFR AFRICAN-AMERICAN > 60; GFR NON-AFRICAN AMERICAN > 60
[2017-03-18] MEDS ORDERED: Potassium Chloride 20 mEq ER Tab PO ONE ×2 (11:50→16:36)
--- NOTE | 2017-03-18 12:58 | CP.PCM.PN ---
Subjective - Date & Time of Evaluation Date of Evaluation: 03/18/17 Time of Evaluation: 12:00 - Subjective Subjective: Lethargic. Answers simple questions. Denies pain Objective - Vital Signs/Intake and Output Vital Signs (last 24 hours): Temp Pulse Resp BP Pulse Ox 98.6 F 76 18 142/70 100 03/18/17 09:13 03/18/17 10:26 03/18/17 09:13 03/18/17 10:26 03/18/17 09:13 Intake and Output: 03/18/17 03/18/17 06:59 18:59 Intake Total 980 Output Total 100 475 Balance 880 -475 - Medications Medications: Current Medications Acetaminophen (Tylenol 650 Mg Supp) 650 mg RC Q6H PRN PRN Reason: Fever >100.4 F Last Admin: 03/17/17 17:30 Dose: 650 mg Acetaminophen (Tylenol 650 Mg Supp) 650 mg RC Q4H PRN PRN Reason: Fever >100.4 F Last Admin: 03/16/17 23:59 Dose: 650 mg Clonidine HCl (Catapres) 0.1 mg PO BID [facility] Last Admin: 03/18/17 10:26 Dose: 0.1 mg Levetiracetam (Keppra 500mg Ivpb) 500 mg in 100 mls @ 420 mls/hr IVPB Q12 [facility] Last Admin: 03/18/17 10:21 Dose: 420 mls/hr Potassium Chloride 10 meq/ (Dextrose/Sodium Chloride) 1,005 mls @ 50 mls/hr IV .Q20H6M [facility] Last Admin: 03/17/17 20:00 Dose: 50 mls/hr Ceftriaxone Sodium (Rocephin 1 Gram Ivpb) 1 gm in 100 mls @ 100 mls/hr IVPB DAILY [facility] PRN Reason: Protocol Last Admin: 03/18/17 10:26 Dose: 100 mls/hr Nitroglycerin (Nitro-Bid 2% Oint) 1 ea TOP Q6 PRN PRN Reason: Systolic Blood Pressure Last Admin: 03/16/17 12:21 Dose: 1 ea Nitroglycerin (Nitro-Bid 2% Oint) 0 ea TOP Q6 PRN PRN Reason: Systolic Blood Pressure Nystatin (Nystop Topical Powder) 0 gm TOP BID [facility] Last Admin: 03/18/17 10:28 Dose: 1 appl Thiamine HCl (Vitamin B1 Inj) 100 mg IM DAILY [facility] Last Admin: 03/18/17 10:26 Dose: 100 mg - Labs Labs: 03/17/17 06:40 03/18/17 11:00 PT 10.3 Seconds (9.9-11.8) 03/13/17 21:45 INR 0.95 (0.93-1.08) 03/13/17 21:45 APTT 26.6 Seconds (23.7-30.8) 03/13/17 21:45 - Constitutional Appears: Cachectic, Chronically Ill - Head Exam Head Exam: NORMOCEPHALIC - Eye Exam Eye Exam: Normal appearance, PERRL - ENT Exam ENT Exam: Mucous Membranes Moist - Neck Exam Neck Exam: Normal Inspection - Respiratory Exam Respiratory Exam: Decreased Breath Sounds, NORMAL BREATHING PATTERN - Cardiovascular Exam Cardiovascular Exam: REGULAR RHYTHM - GI/Abdominal Exam GI & Abdominal Exam: Soft, Normal Bowel Sounds - Extremities Exam Additional comments: left hemiparesis - Skin Skin Exam: Dry, Warm Assessment and Plan - Assessment and Plan (Free Text) Assessment: 81 year old Filipinos female s/p acute frontal parietal intracranial hemorrhage. Family met with [facility] business services coordinator today. Family agreed to home hospice services,consent signed> Psychosocial support given. Plan: Discharge to home hospice services.
--- NOTE | 2017-03-18 13:30 | CP.PCM.PN ---
Subjective - Date & Time of Evaluation Date of Evaluation: 03/18/17 Time of Evaluation: 09:00 - Subjective Subjective: more awake and responsive Objective - Vital Signs/Intake and Output Vital Signs (last 24 hours): Temp Pulse Resp BP Pulse Ox 98.6 F 76 18 142/70 100 03/18/17 09:13 03/18/17 10:26 03/18/17 09:13 03/18/17 10:26 03/18/17 09:13 Intake and Output: 03/18/17 03/18/17 06:59 18:59 Intake Total 980 Output Total 100 475 Balance 880 -475 - Medications Medications: Current Medications Acetaminophen (Tylenol 650 Mg Supp) 650 mg RC Q6H PRN PRN Reason: Fever >100.4 F Last Admin: 03/17/17 17:30 Dose: 650 mg Acetaminophen (Tylenol 650 Mg Supp) 650 mg RC Q4H PRN PRN Reason: Fever >100.4 F Last Admin: 03/16/17 23:59 Dose: 650 mg Clonidine HCl (Catapres) 0.1 mg PO BID [facility] Last Admin: 03/18/17 10:26 Dose: 0.1 mg Levetiracetam (Keppra 500mg Ivpb) 500 mg in 100 mls @ 420 mls/hr IVPB Q12 [facility] Last Admin: 03/18/17 10:21 Dose: 420 mls/hr Potassium Chloride 10 meq/ (Dextrose/Sodium Chloride) 1,005 mls @ 50 mls/hr IV .Q20H6M [facility] Last Admin: 03/17/17 20:00 Dose: 50 mls/hr Ceftriaxone Sodium (Rocephin 1 Gram Ivpb) 1 gm in 100 mls @ 100 mls/hr IVPB DAILY [facility] PRN Reason: Protocol Last Admin: 03/18/17 10:26 Dose: 100 mls/hr Nitroglycerin (Nitro-Bid 2% Oint) 1 ea TOP Q6 PRN PRN Reason: Systolic Blood Pressure Last Admin: 03/16/17 12:21 Dose: 1 ea Nitroglycerin (Nitro-Bid 2% Oint) 0 ea TOP Q6 PRN PRN Reason: Systolic Blood Pressure Nystatin (Nystop Topical Powder) 0 gm TOP BID [facility] Last Admin: 03/18/17 10:28 Dose: 1 appl Thiamine HCl (Vitamin B1 Inj) 100 mg IM DAILY [facility] Last Admin: 03/18/17 10:26 Dose: 100 mg - Labs Labs: 03/17/17 06:40 03/18/17 11:00 PT 10.3 Seconds (9.9-11.8) 03/13/17 21:45 INR 0.95 (0.93-1.08) 03/13/17 21:45 APTT 26.6 Seconds (23.7-30.8) 03/13/17 21:45 Assessment and Plan (1) Fever Status: Acute (2) Subarachnoid bleed Status: Acute (3) Hypokalemia Status: Acute - Assessment and Plan (Free Text) Plan: K supplementation, monitor lytes, rehab, SW for disposition
[2017-03-18 18:12] VITALS: BP 157/83; PULSE 79; RESP 19; TEMP 99.5; O2SAT 99
== END 2017-03-18 18:33 | disposition hospice, home (50) | DRG 65 ==
LOC: ED 21:10 → ERH 03-14 01:05 → 3RSO 03-14 02:00
PROVIDERS: ADMIT Internal Medicine; ATTEND Internal Medicine
DX: I60.9 Nontraumatic subarachnoid hemorrhage, unspecified (principal); G81.91 Hemiplegia, unspecified affecting right dominant side; R64 Cachexia; M06.9 Rheumatoid arthritis, unspecified; Z68.1 Body mass index [BMI] 19.9 or less, adult; I10 Essential (primary) hypertension; Z66 Do not resuscitate; R29.732 NIHSS score 32; E78.5 Hyperlipidemia, unspecified; R47.1 Dysarthria and anarthria; R13.12 Dysphagia, oropharyngeal phase; R50.9 Fever, unspecified; E87.6 Hypokalemia; Z51.5 Encounter for palliative care; Z87.891 Personal history of nicotine dependence; Z74.01 Bed confinement status

== ENCOUNTER 2017-06-13 16:41 | Emergency (ER) | payer MEDICARE, OTHER ==
[2017-06-13 16:42] VITALS: BMI 18.6
[2017-06-13 16:48] VITALS: TEMP 98
--- NOTE | 2017-06-13 17:13 | ED PDOC ---
Arrival/HPI - General Chief Complaint: Trauma Time Seen by Provider: 06/13/17 16:58 Historian: Patient - History of Present Illness Narrative History of Present Illness (Text): 06/13/17 17:10 An 82 year old female whose past medical history includes, hypertension, rheumatoid arthritis, and small bowel obstruction, presents to the emergency department for further evaluation after a mechanical fall. The patient states that she fell out of a wheelchair. She states that a family member was carrying her and he fell causing her to fall and hit her head. The patient denies denies fevers, chills, loss of consciousness, dizziness, sore throat, cough, chest pain , shortness of breath, dyspnea on exertion, abdominal pain, nausea, vomiting, diarrhea, neck pain, back pain, urinary/bowel changes, or any other complaints. PMD: Dr. Martin Time/Duration: Prior to Arrival Symptom Onset: Sudden Symptom Course: Unchanged Activities at Onset: Rest, Light Context: Home Past Medical History - Provider Review Nursing Documentation Reviewed: Yes - Infectious Disease Hx of Infectious Diseases: None - Tetanus Immunization Tetanus Immunization: Unknown - Cardiac Hx Hypertension: Yes - Pulmonary Hx Respiratory Disorders: No - Neurological HX Cerebrovascular Accident: Yes (L mellisa) - HEENT Hx HEENT Disorder: No - Renal Hx Renal Disorder: No - Endocrine/Metabolic Hx Endocrine Disorders: No - Hematological/Oncological Hx Blood Disorders: No - Integumentary Hx Dermatological Disorder: No - Musculoskeletal/Rheumatological Hx Rheumatoid Arthritis: Yes - Gastrointestinal Hx Gastrointestinal Disorders: No - Genitourinary/Gynecological Hx Genitourinary Disorders: No - Psychiatric Hx Psychophysiologic Disorder: No Hx Substance Use: No - Surgical History Hx Cholecystectomy: Yes Other/Comment: Left shoulder surgery Family/Social History - Physician Review Nursing Documentation Reviewed: Yes Family/Social History: No Known Family HX Smoking Status: Never Smoked Hx Alcohol Use: No Hx Substance Use: No Allergies/Home Meds Allergies/Adverse Reactions: Allergies No Known Allergies Allergy (Verified 06/13/17 17:07) Home Medications: Home Meds Medication Instructions Recorded Confirmed Famotidine [Pepcid] 20 mg PO DAILY 03/13/17 06/13/17 Potassium CL 10 MEQ/50 ML 20 meq PO DAILY 03/13/17 06/13/17 [Potassium CL 10MEQ/50ML [facility]] amLODIPine [Norvasc] 5 mg PO DAILY 03/13/17 06/13/17 cloNIDine [clonidine HCl] 0.1 mg PO BID 03/13/17 06/13/17 LORazepam [Ativan] 0.5 mg PO Q6 PRN 06/13/17 06/13/17 Potassium Chloride [K-Dur 20] 20 meq PO DAILY 06/13/17 06/13/17 levETIRAcetam [Keppra] 500 mg PO DAILY 06/13/17 06/13/17 Review of Systems - Physician Review All systems were reviewed & negative as marked: Yes - Review of Systems Constitutional: absent: Fevers, Night Sweats Respiratory: absent: SOB, Cough Cardiovascular: absent: Chest Pain, GARCIA Gastrointestinal: absent: Abdominal Pain, Stool Changes, Diarrhea, Nausea, Vomiting Genitourinary Female: absent: Urine Output Changes Musculoskeletal: absent: Back Pain, Neck Pain Neurological: absent: Headache, Dizziness, Other (loss of consciousnes) Physical Exam Vital Signs Reviewed: Yes Vital Signs Temp Pulse Resp BP Pulse Ox 06/13/17 16:42 98.0 F 97 H 16 132/89 99 Temperature: Afebrile Blood Pressure: Normal Pulse: Tachycardic Respiratory Rate: Normal Appearance: Positive for: Well-Appearing, Non-Toxic, Comfortable Pain Distress: None Mental Status: Positive for: Alert and Oriented X 3 - Systems Exam Head: Present: Normocephalic. No: Atraumatic (hematoma to the back of the patient's head. ) Pupils: Present: PERRL Extroacular Muscles: Present: EOMI Conjunctiva: Present: Normal Mouth: Present: Moist Mucous Membranes Neck: Present: Normal Range of Motion Respiratory/Chest: Present: Clear to Auscultation, Good Air Exchange. No: Respiratory Distress, Accessory Muscle Use Abdomen: Present: Normal Bowel Sounds. No: Tenderness, Distention, Peritoneal Signs Back: Present: Normal Inspection Upper Extremity: Present: Normal Inspection. No: Cyanosis, Edema Lower Extremity: Present: Normal Inspection. No: Edema Neurological: Present: GCS=15, CN II-XII Intact, Speech Normal Skin: Present: Warm, Dry, Normal Color. No: Rashes Psychiatric: Present: Alert, Oriented x 3, Normal Insight, Normal Concentration Medical Decision Making ED Course and Treatment: 06/13/17 17:14 Impression: An 82 year old female presents to the emergency department for further evaluation after a fall. The patient states that a family member was carrying her when he fell and she fell along with him and hit her head. Plan: -- Head CT -- Tylenol -- Reassess and disposition Prior Visits: Notes and results from previous visits were reviewed. On 03/14/2017. The patient was brought in via ALS for decreased level of consciousness and questionable fever. The patient was hospitalized. Progress Notes: CT Head Without Intravenous Contrast EXAM DATE/TIME:06/13/2017 5:10 PM IMPRESSION: Posterior scalp swelling without skull fracture. Previously prominent right parenchymal hematomas have nearly completely resolved. However, in the high right frontal lobe, there is a possible 3.2 cm mass which was previously obscured by blood products. This should be further evaluated with contrast-enhanced MRI. No midline shift. Dictated and Authenticated by: Chioma Sánchez MD 06/13/2017 7:40 PM Eastern Time ([place] & [place]) 06/13/17 20:20: Patient's CT shows no bleeding, but a possible mass. Discussed the results with patient and family. The family states that the patient is in hospice and want no further evaluation. They request the pt. to be discharged. they report this is known mass 06/13/17 21:48 - Lab Interpretations Narrative Lab Interpretation (Text): 06/13/17 17:19 - RAD Interpretation Radiology Orders: 06/13/17 17:10 HEAD W/O CONTRAST [CT] Stat - Medication Orders Current Medication Orders: Discontinued Medications Acetaminophen (Tylenol 325mg Tab) 650 mg PO STAT STA Stop: 06/13/17 17:11 Last Admin: 06/13/17 17:20 Dose: - Scribe Statement The provider has reviewed the documentation as recorded by the Heatheribnain Mcduffie Provider Scribe Attestation: All medical record entries made by the Scribe were at my direction and personally dictated by me. I have reviewed the chart and agree that the record accurately reflects my personal performance of the history, physical exam, medical decision making, and the department course for this patient. I have also personally directed, reviewed, and agree with the discharge instructions and disposition. Disposition/Present on Arrival - Present on Arrival Any Indicators Present on Arrival: No History of DVT/PE: No History of Uncontrolled Diabetes: No Urinary Catheter: No History of Decub. Ulcer: No History Surgical Site Infection Following: None - Disposition Have Diagnosis and Disposition been Completed?: Yes Diagnosis: Head injury Disposition: HOME/ ROUTINE Disposition Time: 07:00 Patient Problems: Current Active Problems Problem Status Onset Head injury Acute Condition: STABLE Discharge Instructions (ExitCare): Head Injury (ED) Additional Instructions: please discuss results of your imaging with your doctor and specialist. Referrals: Alejandro June MD [Staff Provider] - Follow up with primary Jocelin Felix MD [Primary Care Provider] - Follow up with primary Forms: [employer] ([place])
[2017-06-14 03:38] VITALS: BP 132/85; PULSE 85; RESP 18; O2SAT 98
--- NOTE | 2017-06-14 08:43 | CT ---
PROCEDURE: CT HEAD WITHOUT CONTRAST. HISTORY: trauma COMPARISON: 03/13/2017 TECHNIQUE: Axial computed tomography images were obtained through the head/brain without intravenous contrast. Radiation dose: Total exam DLP = 759.00 mGy-cm. This CT exam was performed using one or more of the following dose reduction techniques: Automated exposure control, adjustment of the mA and/or kV according to patient size, and/or use of iterative reconstruction technique. FINDINGS: HEMORRHAGE: Near complete resolution of parenchymal hemorrhage identified on the prior study right frontoparietal region. BRAIN: Mass like lesion right frontoparietal region 3 x 3.2 cm (axial series 2/ image 45) this was obscured by previously identified hemorrhage. Follow-up MRI advised. Cortical atrophy, periventricular small vessel disease VENTRICLES: Unremarkable. No hydrocephalus. CALVARIUM: No evidence of calvarial fracture. Scalp contusion adjacent to the posterior parietal bone. Unremarkable. PARANASAL SINUSES: Unremarkable as visualized. No significant inflammatory changes. MASTOID AIR CELLS: Unremarkable as visualized. No inflammatory changes. OTHER FINDINGS: None. IMPRESSION: Near complete resolution of previously identified parenchymal hemorrhage. Questionable high right frontoparietal mass measuring approximately 3 cm. Follow-up MRI strongly recommended. Posterior scalp contusion without calvarial or underlying intracranial abnormality Concordant results (preliminary interpretation) provided by [facility]. Procedure Completed: 19:14. Preliminary ([facility]) Report: Dictated and Authenticated: 19:40. Final Interpretation: 08:41. June 14, 2017.
== END 2017-06-13 21:20 | disposition home or self-care (01) ==
LOC: ED 16:41
DX: S09.90XA Unspecified injury of head, initial encounter (principal); W05.0XXA Fall from non-moving wheelchair, initial encounter; Y93.89 Activity, other specified; Y92.89 Other specified places as the place of occurrence of the external cause